=== PATIENT | male | born 1965 | race Caucasian/White ===

== ENCOUNTER 2018-02-23 09:55 | Emergency (ER) | payer MEDICAID ==
[~2018-02-23] VITALS: Ht 182.9 cm; Wt 103.2 kg
[~2018-02-23 09:55] MED LIST: ASPI-1264 PO; DILT120C52 PO; ESCI20TA29 PO; LOVA20TA2 PO; OXYC-145 PO
[2018-02-23 10:04] VITALS: BP 123/103
[2018-02-23] MEDS ORDERED: PANT-47 PO (10:35)
[2018-02-23] MEDS ORDERED: ONDA8TAB9 PO (10:35)
== END 2018-02-23 10:55 | disposition home or self-care (01) ==
LOC: ER 09:56
DX: R11.0 Nausea (principal); Q79.59 Other congenital malformations of abdominal wall; I48.91 Unspecified atrial fibrillation; I10 Essential (primary) hypertension; G89.29 Other chronic pain; F12.10 Cannabis abuse, uncomplicated; Z88.0 Allergy status to penicillin
CPT/HCPCS: 99283

== ENCOUNTER 2019-03-15 18:04 | Emergency (ER) | payer MEDICAID ==
[~2019-03-15] VITALS: Ht 182.9 cm; Wt 96.8 kg
[~2019-03-15 18:04] MED LIST changes: +ONDA8TAB9 PO; +PANT-47 PO
[2019-03-15 18:12] VITALS: BP 137/96
--- NOTE | 2019-03-15 20:14 | NUR ---
PT HAS HIS BACK PACK ON AND IS WALKING AROUND IN HIS ROOM.
== END 2019-03-15 20:33 | disposition left against medical advice (07) ==
LOC: ER 18:04
DX: M25.552 Pain in left hip (principal); G89.29 Other chronic pain; M54.5 Low back pain; I48.91 Unspecified atrial fibrillation; I10 Essential (primary) hypertension; F12.90 Cannabis use, unspecified, uncomplicated; Z88.0 Allergy status to penicillin; Z79.82 Long term (current) use of aspirin; Z79.899 Other long term (current) drug therapy; X50.1XXA Overexertion from prolonged static or awkward postures, initial encounter; Y93.89 Activity, other specified; Y92.89 Other specified places as the place of occurrence of the external cause; Y99.8 Other external cause status
CPT/HCPCS: 99281

== ENCOUNTER 2019-06-06 15:07 | Emergency (ER) | payer MEDICAID ==
[~2019-06-06] VITALS: Ht 182.9 cm; Wt 80.0 kg
[2019-06-06] MEDS ORDERED: normal saline 1000ML IV soln IV ONE (15:25)
[2019-06-06] MEDS ORDERED: ondansetron/PF 4mg/2ml inj IV ONE (15:25)
[2019-06-06 15:46] LABS: EOSINOPHILS # (AUTO) 0.2 X10'3 (0-0.9); HEMOGLOBIN 15.1 g/dl (14.0-17.9); LYMPHOCYTES % (AUTO) 45.5 % (21-51); MONOCYTES # (AUTO) 0.8 X10'3 (0-0.9); NEUTROPHILS # (AUTO) 3.3 X10'3 (1.8-7.7); PLATELET COUNT 190 X10'3 (140-440); WHITE BLOOD COUNT 7.8 X10'3 (4.5-11.0)
[2019-06-06 15:48] LABS: BASOPHILS % (AUTO) 0.2 % (0-1); EOSINOPHILS % (AUTO) 2.2 % (0-6); HEMATOCRIT 43.1 % (42.0-52.0); LYMPHOCYTES # (AUTO) 3.6 X10'3 (1.1-4.8); MEAN CORPUSCULAR HEMOGLOBIN 36.1 PG (27.0-31.0); MEAN CORPUSCULAR HGB CONC 35.2 g/dL (33.0-36.5); MEAN CORPUSCULAR VOLUME 102.7 FL (78-98); MEAN PLATELET VOLUME 7.6 FL (7.4-10.4); MONOCYTES % (AUTO) 9.9 % (2-12); NEUTROPHILS % (AUTO) 42.2 % (42-75); RED BLOOD COUNT 4.19 X10'6 (4.70-6.10); RED CELL DISTRIBUTION WIDTH 12.7 % (11.5-14.5)
[2019-06-06 16:02] LABS: ALANINE AMINOTRANSFERASE 75 U/L (12-78); ALBUMIN 3.8 G/DL (3.4-5.0); ALBUMIN/GLOBULIN RATIO 0.9 (1.1-1.5); ALKALINE PHOSPHATASE 107 IU/L (46-116); ANION GAP 15 (8-16); ASPARTATE AMINO TRANSFERASE 48 U/L (10-37); BILIRUBIN,TOTAL 0.3 MG/DL (0.1-1.0); BLOOD UREA NITROGEN 9 MG/DL (7-18); BUN/CREATININE RATIO 11.5 (5.4-32.0); CALCIUM 9.7 MG/DL (8.5-10.1); CHLORIDE 103 MMOL/L (99-107); CREATININE 0.78 MG/DL (0.60-1.10); GLUCOSE 80 MG/DL (70-104); POTASSIUM 3.5 MMOL/L (3.5-5.1); SODIUM 141 MMOL/L (135-145); TOTAL CARBON DIOXIDE 23.2 MMOL/L (24-32); TOTAL PROTEIN 8.1 G/DL (6.4-8.2); eGFR > 90 ML/MIN
[2019-06-06 16:04] LABS: CREATINE KINASE 244 U/L (39-308)
[2019-06-06] MEDS ORDERED: ONDA4TAB6 PO (16:08)
--- NOTE | 2019-06-06 16:27 | NUR ---
PT STATES HE FEELS MUCH BETTER.
--- NOTE | 2019-06-06 16:37 | NUR ---
PT GIVEN A SANDWICH AND MILK
[2019-06-06 17:12] VITALS: BP 144/83
== END 2019-06-06 17:10 | disposition home or self-care (01) ==
LOC: ER 15:08
DX: E86.0 Dehydration (principal); T67.5XXA Heat exhaustion, unspecified, initial encounter; R11.2 Nausea with vomiting, unspecified; I48.91 Unspecified atrial fibrillation; I10 Essential (primary) hypertension; G89.29 Other chronic pain; F12.90 Cannabis use, unspecified, uncomplicated; Z88.0 Allergy status to penicillin; Z79.82 Long term (current) use of aspirin; Z59.0 Homelessness; Z79.899 Other long term (current) drug therapy; Y92.89 Other specified places as the place of occurrence of the external cause
CPT/HCPCS: 36415; 71045; 80053; 82550; 82948; 84484; 85025; 93005; 96361; 96374; 99284; J2405; J7030

== ENCOUNTER 2020-07-13 19:23 | Emergency (ER) | payer MEDICAID ==
[~2020-07-13] VITALS: Ht 182.9 cm; Wt 105.0 kg
[~2020-07-13 19:23] MED LIST changes: +ONDA4TAB6 PO
[2020-07-13 19:39] VITALS: BP 137/90
[2020-07-13] MEDS ORDERED: ketorolac trometh inj. 60 MG/2 ML VIAL IM ONE (21:00)
[2020-07-13] MEDS ORDERED: CYCL-1 PO (21:03)
[2020-07-13] MEDS ORDERED: PRED20TA PO (21:03)
== END 2020-07-13 21:21 | disposition home or self-care (01) ==
LOC: ER 19:24
DX: M54.5 Low back pain (principal); M25.552 Pain in left hip; I48.91 Unspecified atrial fibrillation; I10 Essential (primary) hypertension; G89.29 Other chronic pain; F41.9 Anxiety disorder, unspecified; F12.90 Cannabis use, unspecified, uncomplicated; F32.9 Major depressive disorder, single episode, unspecified; Z59.0 Homelessness; Z88.0 Allergy status to penicillin; Z79.82 Long term (current) use of aspirin; Z79.899 Other long term (current) drug therapy
CPT/HCPCS: 96372; 99283; J1885

== ENCOUNTER 2020-09-06 13:05 | Emergency (ER) | payer MEDICAID ==
[~2020-09-06] VITALS: Ht 182.9 cm; Wt 103.9 kg
[~2020-09-06 13:05] MED LIST changes: +CYCL-1 PO
[2020-09-06] MEDS ORDERED: CEPH-572 PO (14:36)
[2020-09-06] MEDS ORDERED: HYDR-3965 PO (14:56)
--- NOTE | 2020-09-06 15:15 | NUR ---
Kumar cole in ED - 09/06/20 at 1541 by DIPTI post najera applied by francis rodas dmak the pt .
--- NOTE | 2020-09-06 15:20 | NUR ---
NOTFIED SHLOMO CASTREJON THAT PT IS WAITING FOR ORTHO ORDER FOR POST OP BOOT TO RGT FOOT PER COOPERATIVE EXTENSION AGENT HE IS BREAKING SOMEONE AND THEN HE WILL ,PT INSTRUCTED TO WAIT FOR BOOT BEFORE HE LEAVES.
--- NOTE | 2020-09-06 15:30 | NUR ---
Pt has post op boot before d/c .applied by steel weldermaurice wesley..
[2020-09-06 15:37] VITALS: BP 110/82
--- NOTE | 2020-09-06 15:51 | NUR ---
carson peguero has given prx for karenco to dharmesh thornton ,pt already lft the er 15 mins ago ,pt called on [phone] not able to get hold on pt 3 times ,voice msg is full not able to leave ms .
== END 2020-09-06 15:40 | disposition home or self-care (01) ==
LOC: ER 13:06
DX: M79.674 Pain in right toe(s) (principal); M79.89 Other specified soft tissue disorders; I48.91 Unspecified atrial fibrillation; I10 Essential (primary) hypertension; G89.29 Other chronic pain; F41.9 Anxiety disorder, unspecified; F32.9 Major depressive disorder, single episode, unspecified; F12.90 Cannabis use, unspecified, uncomplicated; Z72.89 Other problems related to lifestyle; Z59.0 Homelessness; Z88.0 Allergy status to penicillin; Z79.82 Long term (current) use of aspirin; Z79.2 Long term (current) use of antibiotics; Z79.899 Other long term (current) drug therapy
CPT/HCPCS: 73660; 99283

== ENCOUNTER 2023-10-03 12:19 | Emergency (ER) | payer MEDICAID ==
[~2023-10-03] VITALS: Ht 185.4 cm; Wt 102.3 kg
[2023-10-03 13:15] LABS: BASOPHILS % (AUTO) 0.5 % (0-1); EOSINOPHILS # (AUTO) 0.1 X10'3 (0-0.9); EOSINOPHILS % (AUTO) 1.3 % (0-6); LYMPHOCYTES # (AUTO) 2.1 X10'3 (1.1-4.8); LYMPHOCYTES % (AUTO) 26.4 % (21-51); MEAN CORPUSCULAR HEMOGLOBIN 34.8 PG (27.0-31.0); MEAN CORPUSCULAR HGB CONC 34.6 g/dL (33.0-36.5); MEAN CORPUSCULAR VOLUME 100.7 FL (78-98); MONOCYTES # (AUTO) 0.9 X10'3 (0-0.9); MONOCYTES % (AUTO) 10.9 % (2-12); NEUTROPHILS # (AUTO) 4.8 X10'3 (1.8-7.7); NEUTROPHILS % (AUTO) 60.9 % (42-75); PLATELET COUNT 217 X10'3 (140-440); RED BLOOD COUNT 4.87 X10'6 (4.70-6.10); RED CELL DISTRIBUTION WIDTH 13.4 % (11.5-14.5); WHITE BLOOD COUNT 7.9 X10'3 (4.5-11.0)
[2023-10-03 13:32] LABS: ALANINE AMINOTRANSFERASE 46 U/L (12-78); ALBUMIN 4.1 G/DL (3.4-5.0); ALKALINE PHOSPHATASE 96 IU/L (46-116); ANION GAP 12 (8-16); ASPARTATE AMINO TRANSFERASE 55 U/L (10-37); BILIRUBIN,TOTAL 0.7 MG/DL (0.1-1.0); BLOOD UREA NITROGEN 8 MG/DL (7-18); BUN/CREATININE RATIO 8.9 (10.0-20.0); CHLORIDE 95 MMOL/L (99-107); GLUCOSE 98 MG/DL (70-104); POTASSIUM 4.1 MMOL/L (3.5-5.1); SODIUM 133 MMOL/L (135-145); TOTAL CARBON DIOXIDE 26.3 MMOL/L (24-32); TOTAL PROTEIN 8.2 G/DL (6.4-8.2); eCRCL 100 ML/MIN; eGFR 86 ML/MIN
[2023-10-03 13:37] LABS: AMYLASE 111 U/L (25-115); LIPASE 277 U/L (16-77); PRO BRAIN NATRIURETIC PEPTIDE 388 PG/ML (0-125)
[2023-10-03 16:02] LABS: APTT 31 SECONDS (22-32); PROTHROMBIN TIME 10.9 SECONDS (9.0-12.0)
[2023-10-03 16:12] LABS: PRO BRAIN NATRIURETIC PEPTIDE 429 PG/ML (0-125)
[2023-10-03] MEDS ORDERED: iohexol 300mg/ml 100ml inj. ONE (17:45)
[2023-10-03] MEDS ORDERED: CIPR-259 PO (19:39)
[2023-10-03 19:51] VITALS: BP 140/99; PULSE 82; RESP 16; TEMP 98.1; O2SAT 95
== END 2023-10-03 19:52 | disposition home or self-care (01) ==
LOC: ER 12:20
DX: K85.90 Acute pancreatitis without necrosis or infection, unspecified (principal); N30.90 Cystitis, unspecified without hematuria; I10 Essential (primary) hypertension; G89.29 Other chronic pain; F41.9 Anxiety disorder, unspecified; F32.9 Major depressive disorder, single episode, unspecified; I48.91 Unspecified atrial fibrillation; F17.200 Nicotine dependence, unspecified, uncomplicated; F12.90 Cannabis use, unspecified, uncomplicated; Z59.00 Homelessness unspecified; Z72.89 Other problems related to lifestyle; Z88.0 Allergy status to penicillin; Z79.82 Long term (current) use of aspirin; Z79.899 Other long term (current) drug therapy
CPT/HCPCS: 36415; 71045; 74177; 80053; 82150; 83690; 83880; 84484; 85025; 85610; 85730; 93005; 99285; J3490; Q9967

== ENCOUNTER 2024-08-01 17:27 | Emergency (ER) | payer MEDICAID ==
[~2024-08-01] VITALS: Ht 182.9 cm; Wt 90.9 kg
[2024-08-01 18:31] LABS: BASOPHILS % (AUTO) 0.5 % (0-1); EOSINOPHILS # (AUTO) 0.2 X10'3 (0-0.9); EOSINOPHILS % (AUTO) 2.8 % (0-6); HEMATOCRIT 46.3 % (42.0-52.0); HEMOGLOBIN 15.8 g/dl (14.0-17.9); LYMPHOCYTES # (AUTO) 2.5 X10'3 (1.1-4.8); LYMPHOCYTES % (AUTO) 33.1 % (21-51); MEAN CORPUSCULAR HGB CONC 34.1 g/dL (33.0-36.5); MEAN PLATELET VOLUME 9.3 FL (7.4-10.4); MONOCYTES # (AUTO) 0.7 X10'3 (0-0.9); MONOCYTES % (AUTO) 8.7 % (2-12); NEUTROPHILS # (AUTO) 4.2 X10'3 (1.8-7.7); NEUTROPHILS % (AUTO) 54.9 % (42-75); PLATELET COUNT 197 X10'3 (140-440); RED BLOOD COUNT 4.63 X10'6 (4.70-6.10); RED CELL DISTRIBUTION WIDTH 13.5 % (11.5-14.5); WHITE BLOOD COUNT 7.7 X10'3 (4.5-11.0)
[2024-08-01 18:45] LABS: ALANINE AMINOTRANSFERASE 14 U/L (12-78); ALBUMIN 3.5 G/DL (3.4-5.0); ALBUMIN/GLOBULIN RATIO 0.9 (1.1-1.5); ALKALINE PHOSPHATASE 65 IU/L (46-116); AMYLASE 93 U/L (25-115); ANION GAP 8 (8-16); ASPARTATE AMINO TRANSFERASE 15 U/L (10-37); BILIRUBIN,TOTAL 0.9 MG/DL (0.1-1.0); BLOOD UREA NITROGEN 15 MG/DL (7-18); BUN/CREATININE RATIO 15.8 (10.0-20.0); CALCIUM 9.6 MG/DL (8.5-10.1); CHLORIDE 101 MMOL/L (99-107); CREATININE 0.95 MG/DL (0.60-1.10); GLUCOSE 90 MG/DL (70-104); LIPASE 156 U/L (16-77); POTASSIUM 3.7 MMOL/L (3.5-5.1); SODIUM 138 MMOL/L (135-145); TOTAL CARBON DIOXIDE 29.1 MMOL/L (24-32); TOTAL PROTEIN 7.3 G/DL (6.4-8.2); eCRCL 91 ML/MIN; eGFR 81 ML/MIN
[2024-08-01 19:08] LABS: FREE T4 (FREE THYROXINE) 1.11 NG/DL (0.73-1.40); THYROID STIMULATING HORMONE 1.76 ulU/ml (0.34-4.50)
[2024-08-01 19:16] LABS: APTT 27 SECONDS (22-32); INR 1.1 INR; PROTHROMBIN TIME 11.9 SECONDS (9.0-12.0)
[2024-08-01] MEDS ORDERED: iohexol 300mg/ml 100ml inj. ONE (22:06)
[2024-08-01] MEDS: dicyclomine 10 MG capsule PO ONE (22:44)
[2024-08-01] MEDS: LIDOcaine 2% Viscous 15ml cup MM PRN (22:54)
[2024-08-01] MEDS: mag hydrox/Alum hydrox/simeth 30ml oral suspension PO ONE (22:55)
[2024-08-01 23:14] LABS: BILIRUBIN,URINE NEGATIVE (Neg); CLARITY,URINE CLEAR (Clear); COLOR,URINE YELLOW (Yellow); GLUCOSE, URINE NEGATIVE (Neg); KETONES,URINE NEGATIVE (Neg); LEUKOCYTE ESTERASE ,URINE NEGATIVE (Neg); NITRITES, URINE NEGATIVE (Neg); OCCULT BLOOD,URINE NEGATIVE (Neg); PROTEIN,URINE NEGATIVE (Neg)
[2024-08-01 23:20] LABS: UA COLLECTION TYPE CLN CATCH MIDSTREAM
[2024-08-01 23:31] VITALS: BP 112/81; PULSE 87; RESP 15; TEMP 97.8; O2SAT 100
[2024-08-01] MEDS ORDERED: DICY20TA17 PO (23:37)
[2024-08-01] MEDS ORDERED: DOCU-148 PO (23:37)
[2024-08-01] MEDS ORDERED: OMEP40CA21 PO (23:37)
[2024-08-01] MEDS ORDERED: POLY119P2 PO (23:37)
== END 2024-08-01 23:53 | disposition home or self-care (01) ==
LOC: ER 17:27
DX: K86.2 Cyst of pancreas (principal); K59.00 Constipation, unspecified; F10.10 Alcohol abuse, uncomplicated; R10.13 Epigastric pain; I10 Essential (primary) hypertension; F41.9 Anxiety disorder, unspecified; F32.A Depression, unspecified; F12.90 Cannabis use, unspecified, uncomplicated; Z88.0 Allergy status to penicillin; Z79.82 Long term (current) use of aspirin; Z79.899 Other long term (current) drug therapy; Y90.9 Presence of alcohol in blood, level not specified
CPT/HCPCS: 36415; 71045; 74177; 80053; 81003; 82150; 83690; 84439; 84443; 85025; 85610; 85730; 99285; Q9967

== ENCOUNTER 2024-08-22 14:35 | Inpatient (IN) | payer MEDICAID ==
[~2024-08-22] VITALS: Ht 182.9 cm; Wt 90.0 kg
[~2024-08-22 14:35] MED LIST changes: +DICY20TA17 PO; +DOCU-148 PO; +OMEP40CA21 PO; +POLY119P2 PO
[2024-08-22 15:26] LABS: BASOPHILS # (AUTO) 0.1 X10'3 (0-0.2); BASOPHILS % (AUTO) 0.7 % (0-1); EOSINOPHILS # (AUTO) 0.1 X10'3 (0-0.9); EOSINOPHILS % (AUTO) 1.3 % (0-6); HEMATOCRIT 44.1 % (42.0-52.0); HEMOGLOBIN 15.4 g/dl (14.0-17.9); LYMPHOCYTES # (AUTO) 2.4 X10'3 (1.1-4.8); LYMPHOCYTES % (AUTO) 24.1 % (21-51); MEAN CORPUSCULAR HEMOGLOBIN 34.4 PG (27.0-31.0); MEAN CORPUSCULAR HGB CONC 34.9 g/dL (33.0-36.5); MEAN CORPUSCULAR VOLUME 98.7 FL (78-98); MEAN PLATELET VOLUME 9.4 FL (7.4-10.4); MONOCYTES # (AUTO) 0.9 X10'3 (0-0.9); MONOCYTES % (AUTO) 9.1 % (2-12); NEUTROPHILS # (AUTO) 6.3 X10'3 (1.8-7.7); NEUTROPHILS % (AUTO) 64.8 % (42-75); PLATELET COUNT 216 X10'3 (140-440); RED BLOOD COUNT 4.47 X10'6 (4.70-6.10); RED CELL DISTRIBUTION WIDTH 12.7 % (11.5-14.5); WHITE BLOOD COUNT 9.8 X10'3 (4.5-11.0)
[2024-08-22 15:38] LABS: ALANINE AMINOTRANSFERASE 15 U/L (12-78); ALBUMIN 3.6 G/DL (3.4-5.0); ALBUMIN/GLOBULIN RATIO 0.9 (1.1-1.5); ALKALINE PHOSPHATASE 78 IU/L (46-116); ANION GAP 9 (8-16); ASPARTATE AMINO TRANSFERASE 12 U/L (10-37); BILIRUBIN,TOTAL 0.6 MG/DL (0.1-1.0); BLOOD UREA NITROGEN 15 MG/DL (7-18); BUN/CREATININE RATIO 17.2 (10.0-20.0); CALCIUM 9.6 MG/DL (8.5-10.1); CHLORIDE 102 MMOL/L (99-107); CREATININE 0.87 MG/DL (0.60-1.10); GLUCOSE 94 MG/DL (70-104); LIPASE 359 U/L (16-77); POTASSIUM 3.3 MMOL/L (3.5-5.1); SODIUM 138 MMOL/L (135-145); TOTAL CARBON DIOXIDE 26.8 MMOL/L (24-32); TOTAL PROTEIN 7.5 G/DL (6.4-8.2); eCRCL 99 ML/MIN; eGFR 90 ML/MIN
[2024-08-22] MEDS: normal saline 1000ML IV soln IVB ONE (16:30)
[2024-08-22] MEDS: ondansetron/PF 4mg/2ml inj IV ONE (16:30)
[2024-08-22] MEDS: morphine 4 MG/ML inj SYRINge IV ONE (16:30)
[2024-08-22] MEDS: ketorolac trometh 15mg/ml vial 15 MG/ML ML IV ONE (16:39)
[2024-08-22] MEDS ORDERED: magnesium Cl slow-release 64mg tablet PO PRN (17:15)
[2024-08-22] MEDS ORDERED: potassium Cl 40MEQ/1/2NS 520ml 520 ML IV PRN (17:15)
[2024-08-22] MEDS ORDERED: morphine 2 MG/ML inj. syringe IV PRN ×2 (17:15)
[2024-08-22] MEDS ORDERED: mag hydrox/Alum hydrox/simeth 30ml oral suspension PO PRN (17:15)
[2024-08-22] MEDS ORDERED: ondansetron/PF 4mg/2ml inj IV PRN (17:15)
[2024-08-22] MEDS ORDERED: acetaminophen 325mg tablet PO PRN (17:15)
[2024-08-22] MEDS ORDERED: potassium Cl 20 mEq SR tablet PO PRN (17:15)
[2024-08-22 17:35] LABS: CHOL/HDL RATIO 3.2 (0.00-4.99); CHOLESTEROL 112 MG/DL (0-200); HDL CHOLESTEROL 35 MG/DL (35-60); LDL CHOLESTEROL 63 MG/DL (50-100); TRIGLYCERIDES 84 MG/DL (20-135)
[2024-08-22] MEDS: normal saline 1000ml 1,000 ML IV SCH (17:47)
[2024-08-22 17:50] LABS: APTT 30 SECONDS (22-32); INR 1.1 INR; PROTHROMBIN TIME 11.4 SECONDS (9.0-12.0)
[2024-08-22 18:31] LABS: ETHANOL < 10 MG/DL (<10)
[2024-08-22] MEDS: heparin, porcine 5000 units/ml vial SQ SCH (19:55)
[2024-08-22] MEDS: potassium Cl 20 mEq SR tablet PO PRN (19:55)
[2024-08-22] MEDS: docusate sod 100mg capsule PO SCH (19:55)
[2024-08-22] MEDS: thiamine 100mg tablet PO SCH (19:56)
[2024-08-22] MEDS: folic acid 1mg tablet PO SCH (19:56)
[2024-08-22] MEDS: multivitamins, therapeutics tablet PO SCH (19:57)
[2024-08-22 20:10] VITALS: BP 128/84; PULSE 75; RESP 17; TEMP 97.1; O2SAT 97
[2024-08-22 20:15] VITALS: RESP 17; O2SAT 97
[2024-08-22 22:00] VITALS: BP 149/92; PULSE 65; RESP 17; TEMP 97.8; O2SAT 99
[2024-08-22] MEDS ORDERED: APIX5TAB3 PO (23:35)
[2024-08-22] MEDS ORDERED: METO-411 PO (23:37)
[2024-08-22] MEDS ORDERED: ATOR10TA87 PO (23:43)
[2024-08-22] MEDS: HYDROcodone/acetaminophen 10/325mg tab PO PRN (23:44)
[2024-08-23 05:00] LABS: BASOPHILS % (AUTO) 0.6 % (0-1); EOSINOPHILS # (AUTO) 0.1 X10'3 (0-0.9); HEMATOCRIT 39.6 % (42.0-52.0); HEMOGLOBIN 13.1 g/dl (14.0-17.9); LYMPHOCYTES % (AUTO) 25.9 % (21-51); MEAN CORPUSCULAR HEMOGLOBIN 32.7 PG (27.0-31.0); MEAN CORPUSCULAR VOLUME 99.1 FL (78-98); MEAN PLATELET VOLUME 8.9 FL (7.4-10.4); MONOCYTES # (AUTO) 0.7 X10'3 (0-0.9); MONOCYTES % (AUTO) 9.9 % (2-12); NEUTROPHILS # (AUTO) 4.7 X10'3 (1.8-7.7); NEUTROPHILS % (AUTO) 61.6 % (42-75); PLATELET COUNT 179 X10'3 (140-440); RED CELL DISTRIBUTION WIDTH 12.8 % (11.5-14.5); WHITE BLOOD COUNT 7.6 X10'3 (4.5-11.0)
[2024-08-23 05:12] LABS: ALANINE AMINOTRANSFERASE 9 U/L (12-78); ALBUMIN 2.8 G/DL (3.4-5.0); ALBUMIN/GLOBULIN RATIO 0.9 (1.1-1.5); ALKALINE PHOSPHATASE 62 IU/L (46-116); ANION GAP 8 (8-16); ASPARTATE AMINO TRANSFERASE 7 U/L (10-37); BILIRUBIN,TOTAL 0.7 MG/DL (0.1-1.0); BLOOD UREA NITROGEN 16 MG/DL (7-18); BUN/CREATININE RATIO 19.8 (10.0-20.0); CALCIUM 8.6 MG/DL (8.5-10.1); CHLORIDE 107 MMOL/L (99-107); CREATININE 0.81 MG/DL (0.60-1.10); GLUCOSE 80 MG/DL (70-104); MAGNESIUM 1.8 MG/DL (1.5-2.4); SODIUM 140 MMOL/L (135-145); TOTAL CARBON DIOXIDE 25.3 MMOL/L (24-32); TOTAL PROTEIN 5.9 G/DL (6.4-8.2); eCRCL 106 ML/MIN; eGFR > 90 ML/MIN
[2024-08-23 06:00] VITALS: BP 118/85; PULSE 63; RESP 20; TEMP 97.8; O2SAT 98
[2024-08-23 09:10] LABS: LIPASE 188 U/L (16-77)
[2024-08-23] MEDS ORDERED: haloperidol lactate 5mg/ml inj IM PRN (10:20)
[2024-08-23] MEDS ORDERED: haloperidol 5mg tablet PO PRN (10:20)
[2024-08-23] MEDS ORDERED: LORazepam 1 MG tablet PO PRN (10:20)
[2024-08-23] MEDS ORDERED: LORazepam 2 mg/ml vial IV PRN (10:20)
[2024-08-23] MEDS: nicotine 14mg patch - 24hr TD SCH (10:20)
[2024-08-23 13:19] VITALS: RESP 16; O2SAT 96
[2024-08-23 13:47] VITALS: BP 118/81; PULSE 74; RESP 16; TEMP 97.6; O2SAT 96
[2024-08-23 18:00] VITALS: BP_SYST 135; BP_SYST 137; BP_DIAS 80; BP_DIAS 88; PULSE 69; RESP 17; RESP 18; TEMP 96.6; TEMP 98.3; O2SAT 99
[2024-08-23] MEDS: atorvastatin 10mg tablet PO SCH (18:09)
[2024-08-23] MEDS: pantoprazole 40mg Tablet.DR PO SCH (18:09)
[2024-08-23 20:00] VITALS: RESP 14; O2SAT 96
[2024-08-23] MEDS: apixaban 5mg tablet PO SCH (20:01)
[2024-08-23 22:00] VITALS: BP 135/88; PULSE 69; RESP 18; TEMP 96.6; O2SAT 99
[2024-08-24] VITALS (8 sets, daily range): BP systolic 118–154; BP diastolic 81–96; PULSE 73–90; RESP 16–20; TEMP 97.8–98.8; O2SAT 98–100
[2024-08-24 04:40] LABS: BASOPHILS % (AUTO) 0.5 % (0-1); EOSINOPHILS # (AUTO) 0.2 X10'3 (0-0.9); EOSINOPHILS % (AUTO) 2.9 % (0-6); HEMATOCRIT 39.1 % (42.0-52.0); HEMOGLOBIN 13.1 g/dl (14.0-17.9); LYMPHOCYTES # (AUTO) 2.1 X10'3 (1.1-4.8); LYMPHOCYTES % (AUTO) 33.5 % (21-51); MEAN CORPUSCULAR HEMOGLOBIN 33.2 PG (27.0-31.0); MEAN CORPUSCULAR HGB CONC 33.6 g/dL (33.0-36.5); MEAN CORPUSCULAR VOLUME 99.1 FL (78-98); MEAN PLATELET VOLUME 9.1 FL (7.4-10.4); MONOCYTES # (AUTO) 0.7 X10'3 (0-0.9); MONOCYTES % (AUTO) 11.1 % (2-12); NEUTROPHILS # (AUTO) 3.3 X10'3 (1.8-7.7); PLATELET COUNT 169 X10'3 (140-440); RED BLOOD COUNT 3.94 X10'6 (4.70-6.10); WHITE BLOOD COUNT 6.3 X10'3 (4.5-11.0)
[2024-08-24 04:52] LABS: ALANINE AMINOTRANSFERASE 8 U/L (12-78); ALBUMIN 2.6 G/DL (3.4-5.0); ALBUMIN/GLOBULIN RATIO 0.8 (1.1-1.5); ALKALINE PHOSPHATASE 61 IU/L (46-116); ANION GAP 7 (8-16); ASPARTATE AMINO TRANSFERASE 10 U/L (10-37); BILIRUBIN,TOTAL 0.6 MG/DL (0.1-1.0); BLOOD UREA NITROGEN 9 MG/DL (7-18); CALCIUM 8.7 MG/DL (8.5-10.1); CHLORIDE 107 MMOL/L (99-107); CREATININE 0.69 MG/DL (0.60-1.10); GLUCOSE 78 MG/DL (70-104); LIPASE 125 U/L (16-77); MAGNESIUM 1.6 MG/DL (1.5-2.4); POTASSIUM 3.3 MMOL/L (3.5-5.1); SODIUM 141 MMOL/L (135-145); TOTAL CARBON DIOXIDE 27.5 MMOL/L (24-32); TOTAL PROTEIN 5.9 G/DL (6.4-8.2); eCRCL 125 ML/MIN; eGFR > 90 ML/MIN
[2024-08-24] MEDS ORDERED: POTASSIUM BICARB 20meq eff tab 20 MEQ TABLET.EFF PO PRN (07:35)
[2024-08-24] MEDS: ESCITALOPRAM 10 mg tablet 10 MG TABLET PO SCH (07:46)
[2024-08-24] MEDS: metoprolol succinate 25mg (24-HOUR) SR. Tablet PO SCH (08:03)
[2024-08-24] MEDS: POTASSIUM BICARB 20meq eff tab 20 MEQ TABLET.EFF PO PRN (08:08)
[2024-08-24] MEDS: HYDROcodone/acetaminophen 5mg/325mg tablet PO PRN (13:39)
[2024-08-24] MEDS: dicyclomine 10 MG capsule PO PRN (13:39)
[2024-08-24] MEDS: magnesium hydroxide 30ml (MOM) UD suspension PO PRN (19:42)
[2024-08-24 19:54] LABS: BILIRUBIN,URINE NEGATIVE (Neg); CLARITY,URINE CLEAR (Clear); COLOR,URINE YELLOW (Yellow); GLUCOSE, URINE NEGATIVE (Neg); KETONES,URINE NEGATIVE (Neg); LEUKOCYTE ESTERASE ,URINE NEGATIVE (Neg); NITRITES, URINE NEGATIVE (Neg); OCCULT BLOOD,URINE NEGATIVE (Neg); PROTEIN,URINE NEGATIVE (Neg)
[2024-08-24 20:09] LABS: UA COLLECTION TYPE CLN CATCH MIDSTREAM
[2024-08-24 20:14] LABS: URINE AMPHETAMINE SCREEN NEGATIVE (Neg); URINE BARBITUATE SCREEN NEGATIVE (Neg); URINE BENZODIAZEPINES SCREEN NEGATIVE (Neg); URINE CANNABINOID SCREEN POSITIVE (Neg); URINE COCAINE SCREEN NEGATIVE (Neg); URINE METHADONE SCREEN NEGATIVE (Neg); URINE OPIATE SCREEN POSITIVE (Neg); URINE PHENCYCLIDINE SCREEN NEGATIVE (Neg)
[2024-08-25 05:43] LABS: ALANINE AMINOTRANSFERASE 14 U/L (12-78); ALBUMIN 2.4 G/DL (3.4-5.0); ALBUMIN/GLOBULIN RATIO 0.8 (1.1-1.5); ALKALINE PHOSPHATASE 51 IU/L (46-116); ANION GAP 4 (8-16); ASPARTATE AMINO TRANSFERASE 9 U/L (10-37); BILIRUBIN,TOTAL 0.5 MG/DL (0.1-1.0); BLOOD UREA NITROGEN 6 MG/DL (7-18); CALCIUM 8.5 MG/DL (8.5-10.1); CHLORIDE 109 MMOL/L (99-107); CREATININE 0.67 MG/DL (0.60-1.10); GLUCOSE 79 MG/DL (70-104); LIPASE 123 U/L (16-77); MAGNESIUM 1.8 MG/DL (1.5-2.4); POTASSIUM 3.5 MMOL/L (3.5-5.1); SODIUM 141 MMOL/L (135-145); TOTAL CARBON DIOXIDE 27.7 MMOL/L (24-32); TOTAL PROTEIN 5.4 G/DL (6.4-8.2); eCRCL 129 ML/MIN; eGFR > 90 ML/MIN
[2024-08-25 05:52] LABS: BASOPHILS % (AUTO) 0.5 % (0-1); EOSINOPHILS # (AUTO) 0.2 X10'3 (0-0.9); EOSINOPHILS % (AUTO) 3.1 % (0-6); HEMATOCRIT 34.4 % (42.0-52.0); HEMOGLOBIN 11.8 g/dl (14.0-17.9); LYMPHOCYTES # (AUTO) 2.2 X10'3 (1.1-4.8); LYMPHOCYTES % (AUTO) 39.9 % (21-51); MEAN CORPUSCULAR HEMOGLOBIN 33.9 PG (27.0-31.0); MEAN CORPUSCULAR HGB CONC 34.2 g/dL (33.0-36.5); MEAN PLATELET VOLUME 9.3 FL (7.4-10.4); MONOCYTES # (AUTO) 0.6 X10'3 (0-0.9); MONOCYTES % (AUTO) 11.2 % (2-12); NEUTROPHILS # (AUTO) 2.5 X10'3 (1.8-7.7); NEUTROPHILS % (AUTO) 45.3 % (42-75); PLATELET COUNT 151 X10'3 (140-440); RED BLOOD COUNT 3.48 X10'6 (4.70-6.10); WHITE BLOOD COUNT 5.6 X10'3 (4.5-11.0)
[2024-08-25 06:00] VITALS: BP 141/90; PULSE 76; RESP 16; TEMP 98; O2SAT 97
[2024-08-25 08:24] VITALS: RESP 17
[2024-08-25] MEDS ORDERED: ACET-1017 PO (10:04)
== END 2024-08-25 12:30 | disposition home or self-care (01) | DRG 282 ==
LOC: ER 14:36 → ED HOLD 17:19 → SUR 3N 20:05
PROVIDERS: ADMIT Family Medicine; ATTEND Family Medicine
DX: K85.90 Acute pancreatitis without necrosis or infection, unspecified (principal); E87.6 Hypokalemia; F10.10 Alcohol abuse, uncomplicated; I10 Essential (primary) hypertension; I48.91 Unspecified atrial fibrillation; M54.9 Dorsalgia, unspecified; F41.9 Anxiety disorder, unspecified; G89.4 Chronic pain syndrome; Y90.9 Presence of alcohol in blood, level not specified; K86.2 Cyst of pancreas; F32.A Depression, unspecified; Z87.891 Personal history of nicotine dependence; Z59.00 Homelessness unspecified; Z88.6 Allergy status to analgesic agent; Z88.0 Allergy status to penicillin
CPT/HCPCS: 36415; 76700; 80053; 80061; 80305; 80320; 81003; 82948; 83690; 83735; 84132; 85025; 85610; 85730; 87081; 99285; G0378; J1644; J1885; J2270; J2405; J7030

== ENCOUNTER 2024-09-28 12:52 | Inpatient (IN) | payer MEDICAID ==
[~2024-09-28] VITALS: Ht 182.9 cm; Wt 90.9 kg
[~2024-09-28 12:52] MED LIST changes: +APIX5TAB3 PO; +ATOR10TA87 PO; -CYCL-1 PO; -DICY20TA17 PO; -DOCU-148 PO; +METO-411 PO; -OMEP40CA21 PO; -ONDA4TAB6 PO; -ONDA8TAB9 PO; -OXYC-145 PO; -POLY119P2 PO
[2024-09-28] MEDS: normal saline 1000ML IV soln IVB ONE ×2 (14:00→16:47)
[2024-09-28] MEDS: ondansetron/PF 4mg/2ml inj IV ONE (14:00)
[2024-09-28] MEDS: morphine 4 MG/ML inj SYRINge IV ONE ×2 (14:00→16:47)
[2024-09-28] MEDS: pantoprazole 40 MG vial IV ONE (14:00)
[2024-09-28 14:10] LABS: BASOPHILS # (AUTO) 0.1 X10'3 (0-0.2); BASOPHILS % (AUTO) 0.5 % (0-1); EOSINOPHILS # (AUTO) 0.2 X10'3 (0-0.9); EOSINOPHILS % (AUTO) 1.8 % (0-6); HEMATOCRIT 45.9 % (42.0-52.0); HEMOGLOBIN 15.4 g/dl (14.0-17.9); LYMPHOCYTES # (AUTO) 2.5 X10'3 (1.1-4.8); LYMPHOCYTES % (AUTO) 21.7 % (21-51); MEAN CORPUSCULAR HEMOGLOBIN 32.9 PG (27.0-31.0); MEAN CORPUSCULAR HGB CONC 33.6 g/dL (33.0-36.5); MEAN CORPUSCULAR VOLUME 97.9 FL (78-98); MONOCYTES # (AUTO) 0.9 X10'3 (0-0.9); MONOCYTES % (AUTO) 8.1 % (2-12); NEUTROPHILS # (AUTO) 7.7 X10'3 (1.8-7.7); NEUTROPHILS % (AUTO) 67.9 % (42-75); PLATELET COUNT 262 X10'3 (140-440); RED BLOOD COUNT 4.69 X10'6 (4.70-6.10); RED CELL DISTRIBUTION WIDTH 13.7 % (11.5-14.5); WHITE BLOOD COUNT 11.3 X10'3 (4.5-11.0)
[2024-09-28 14:18] LABS: APTT 30 SECONDS (22-32); INR 1.1 INR; PROTHROMBIN TIME 11.4 SECONDS (9.0-12.0)
[2024-09-28 14:22] LABS: ALANINE AMINOTRANSFERASE 14 U/L (12-78); ALBUMIN 3.5 G/DL (3.4-5.0); ALBUMIN/GLOBULIN RATIO 0.9 (1.1-1.5); ALKALINE PHOSPHATASE 86 IU/L (46-116); ANION GAP 10 (8-16); BLOOD UREA NITROGEN 17 MG/DL (7-18); BUN/CREATININE RATIO 20.5 (10.0-20.0); CALCIUM 9.5 MG/DL (8.5-10.1); CHLORIDE 98 MMOL/L (99-107); CREATININE 0.83 MG/DL (0.60-1.10); GLUCOSE 89 MG/DL (70-104); LIPASE 70 U/L (16-77); MAGNESIUM 1.9 MG/DL (1.5-2.4); SODIUM 133 MMOL/L (135-145); TOTAL CARBON DIOXIDE 24.8 MMOL/L (24-32); TOTAL PROTEIN 7.4 G/DL (6.4-8.2); eCRCL 104 ML/MIN; eGFR > 90 ML/MIN
[2024-09-28 14:24] LABS: ASPARTATE AMINO TRANSFERASE 23 U/L (10-37); POTASSIUM 4.3 MMOL/L (3.5-5.1)
[2024-09-28 14:26] LABS: ETHANOL < 10 MG/DL (<10)
[2024-09-28] MEDS ORDERED: HYDROcodone/acetaminophen 5mg/325mg tablet PO PRN (16:10)
[2024-09-28] MEDS ORDERED: diphenhydrAMINE 50 mg/ml inj IV PRN (16:10)
[2024-09-28] MEDS ORDERED: mag hydrox/Alum hydrox/simeth 30ml oral suspension PO PRN (16:10)
[2024-09-28] MEDS ORDERED: ondansetron 4mg rapidly disintigrating tab PO PRN (16:10)
[2024-09-28] MEDS ORDERED: magnesium hydroxide 30ml (MOM) UD suspension PO PRN (16:10)
[2024-09-28] MEDS ORDERED: metoclopramide 5 mg/ml inj IV PRN (16:10)
[2024-09-28] MEDS ORDERED: acetaminophen 325mg tablet PO PRN ×2 (16:10)
[2024-09-28] MEDS ORDERED: bisacodyl 10mg suppository rectal RC PRN (16:10)
[2024-09-28] MEDS ORDERED: diphenhydrAMINE 25mg capsule PO PRN (16:10)
[2024-09-28] MEDS ORDERED: acetaminophen 1,000mg/100ml IV 100 ML IV PRN (16:30)
[2024-09-28 16:32] LABS: BILIRUBIN,URINE MODERATE (Neg); CLARITY,URINE CLEAR (Clear); GLUCOSE, URINE NEGATIVE (Neg); KETONES,URINE 40 mg/dl (Neg); LEUKOCYTE ESTERASE ,URINE NEGATIVE (Neg); OCCULT BLOOD,URINE NEGATIVE (Neg); PROTEIN,URINE 30 mg/dl (Neg)
[2024-09-28 16:34] LABS: COLOR,URINE DARK YELLOW (Yellow); NITRITES, URINE NEGATIVE (Neg); UA COLLECTION TYPE NON-SPECIFIED
[2024-09-28 16:41] LABS: AMORPHOUS PHOSPHATES 1+; BACTERIA,URINE FEW /HPF (Neg); FINE GRANULAR CAST 0-3 /LPF (NEGATIVE); MUCUS STRANDS FEW /LPF (Neg); RBC,URINE 0-2 /HPF (0-2); SQUAMOUS EPITHELIAL CELL,UR FEW /LPF (FEW)
[2024-09-28 16:46] LABS: URINE AMPHETAMINE SCREEN NEGATIVE (Neg); URINE BARBITUATE SCREEN NEGATIVE (Neg); URINE BENZODIAZEPINES SCREEN NEGATIVE (Neg); URINE CANNABINOID SCREEN POSITIVE (Neg); URINE COCAINE SCREEN NEGATIVE (Neg); URINE METHADONE SCREEN NEGATIVE (Neg); URINE OPIATE SCREEN POSITIVE (Neg); URINE PHENCYCLIDINE SCREEN NEGATIVE (Neg)
[2024-09-28 16:46] LABS: HEMOGLOBIN A1C 5.3 % (4.5-6.2)
[2024-09-28] MEDS: normal saline 1000ml 1,000 ML IV SCH (16:48)
[2024-09-28 16:50] LABS: PRO BRAIN NATRIURETIC PEPTIDE 846 PG/ML (0-125)
[2024-09-28 16:54] LABS: PHOSPHORUS 3.7 MG/DL (2.3-4.5)
[2024-09-28] MEDS: docusate sod 100mg capsule PO SCH (20:00)
[2024-09-28] MEDS: pantoprazole 40MG/NS 100ML BAG 100 ML IV SCH (20:24)
[2024-09-28] MEDS: heparin, porcine 5000 units/ml vial SQ SCH (20:24)
[2024-09-28] MEDS ORDERED: PANT40TA54 PO (20:29)
[2024-09-28] MEDS ORDERED: temazepam 15mg capsule PO PRN (21:00)
[2024-09-29] MEDS: morphine 2 MG/ML inj. syringe IV PRN ×2 (00:58→08:37)
[2024-09-29] MEDS: ondansetron/PF 4mg/2ml inj IV PRN (00:58)
[2024-09-29 08:29] LABS: BASOPHILS % (AUTO) 0.4 % (0-1); EOSINOPHILS # (AUTO) 0.2 X10'3 (0-0.9); EOSINOPHILS % (AUTO) 1.6 % (0-6); HEMATOCRIT 41.1 % (42.0-52.0); HEMOGLOBIN 13.8 g/dl (14.0-17.9); LYMPHOCYTES # (AUTO) 1.8 X10'3 (1.1-4.8); LYMPHOCYTES % (AUTO) 17.5 % (21-51); MEAN CORPUSCULAR HEMOGLOBIN 32.6 PG (27.0-31.0); MEAN CORPUSCULAR HGB CONC 33.6 g/dL (33.0-36.5); MEAN PLATELET VOLUME 8.7 FL (7.4-10.4); MONOCYTES # (AUTO) 0.8 X10'3 (0-0.9); MONOCYTES % (AUTO) 8.2 % (2-12); NEUTROPHILS # (AUTO) 7.4 X10'3 (1.8-7.7); NEUTROPHILS % (AUTO) 72.3 % (42-75); PLATELET COUNT 231 X10'3 (140-440); RED BLOOD COUNT 4.24 X10'6 (4.70-6.10); RED CELL DISTRIBUTION WIDTH 13.9 % (11.5-14.5); WHITE BLOOD COUNT 10.2 X10'3 (4.5-11.0)
[2024-09-29 09:10] LABS: ALANINE AMINOTRANSFERASE 14 U/L (12-78); ALBUMIN 3.1 G/DL (3.4-5.0); ALBUMIN/GLOBULIN RATIO 0.9 (1.1-1.5); ALKALINE PHOSPHATASE 72 IU/L (46-116); ANION GAP 10 (8-16); ASPARTATE AMINO TRANSFERASE 13 U/L (10-37); BILIRUBIN,TOTAL 0.8 MG/DL (0.1-1.0); BLOOD UREA NITROGEN 17 MG/DL (7-18); BUN/CREATININE RATIO 24.6 (10.0-20.0); CALCIUM 8.8 MG/DL (8.5-10.1); CHLORIDE 101 MMOL/L (99-107); CHOL/HDL RATIO 3.6 (0.00-4.99); CHOLESTEROL 111 MG/DL (0-200); CREATININE 0.69 MG/DL (0.60-1.10); GLUCOSE 77 MG/DL (70-104); HDL CHOLESTEROL 31 MG/DL (35-60); LDL CHOLESTEROL 72 MG/DL (50-100); POTASSIUM 3.5 MMOL/L (3.5-5.1); SODIUM 134 MMOL/L (135-145); TOTAL CARBON DIOXIDE 23.2 MMOL/L (24-32); TOTAL PROTEIN 6.6 G/DL (6.4-8.2); TRIGLYCERIDES 81 MG/DL (20-135); eCRCL 125 ML/MIN; eGFR > 90 ML/MIN
[2024-09-29 11:01] VITALS: BP 128/96; PULSE 93; RESP 16; TEMP 98.2; O2SAT 99
[2024-09-29] MEDS: HYDROcodone/acetaminophen 10/325mg tab PO PRN (11:09)
[2024-09-29 15:00] VITALS: RESP 14; O2SAT 98
[2024-09-29] MEDS: levoFLOXACIN-Levaquin 500mg/D5 100 ML IV SCH (17:35)
[2024-09-29 17:38] LABS: H PYLORI ANTIBODY NEGATIVE (Neg)
[2024-09-29 18:00] VITALS: BP 123/86; PULSE 80; RESP 13; TEMP 97.5; O2SAT 97
[2024-09-29 20:00] VITALS: RESP 13; O2SAT 97
[2024-09-29 22:00] VITALS: BP 116/92; PULSE 79; RESP 13; TEMP 97.5; O2SAT 97
[2024-09-30 06:00] VITALS: BP 103/63; PULSE 79; RESP 18; TEMP 98.7; O2SAT 100
[2024-09-30 07:58] LABS: BASOPHILS % (AUTO) 0.3 % (0-1); EOSINOPHILS # (AUTO) 0.2 X10'3 (0-0.9); EOSINOPHILS % (AUTO) 2.7 % (0-6); HEMATOCRIT 37.1 % (42.0-52.0); HEMOGLOBIN 12.6 g/dl (14.0-17.9); LYMPHOCYTES # (AUTO) 1.6 X10'3 (1.1-4.8); LYMPHOCYTES % (AUTO) 22.8 % (21-51); MEAN CORPUSCULAR HEMOGLOBIN 33.1 PG (27.0-31.0); MEAN CORPUSCULAR VOLUME 97.4 FL (78-98); MEAN PLATELET VOLUME 8.7 FL (7.4-10.4); MONOCYTES # (AUTO) 0.7 X10'3 (0-0.9); MONOCYTES % (AUTO) 9.6 % (2-12); NEUTROPHILS # (AUTO) 4.5 X10'3 (1.8-7.7); NEUTROPHILS % (AUTO) 64.6 % (42-75); PLATELET COUNT 207 X10'3 (140-440); RED BLOOD COUNT 3.81 X10'6 (4.70-6.10); RED CELL DISTRIBUTION WIDTH 13.8 % (11.5-14.5)
[2024-09-30 08:06] LABS: ALANINE AMINOTRANSFERASE 9 U/L (12-78); ALBUMIN 2.6 G/DL (3.4-5.0); ALBUMIN/GLOBULIN RATIO 0.8 (1.1-1.5); ALKALINE PHOSPHATASE 61 IU/L (46-116); ANION GAP 6 (8-16); ASPARTATE AMINO TRANSFERASE 14 U/L (10-37); BILIRUBIN,TOTAL 0.8 MG/DL (0.1-1.0); BLOOD UREA NITROGEN 13 MG/DL (7-18); BUN/CREATININE RATIO 17.6 (10.0-20.0); CALCIUM 8.4 MG/DL (8.5-10.1); CHLORIDE 103 MMOL/L (99-107); CREATININE 0.74 MG/DL (0.60-1.10); GLUCOSE 63 MG/DL (70-104); POTASSIUM 3.4 MMOL/L (3.5-5.1); SODIUM 136 MMOL/L (135-145); TOTAL CARBON DIOXIDE 26.6 MMOL/L (24-32); TOTAL PROTEIN 5.8 G/DL (6.4-8.2); eCRCL 117 ML/MIN; eGFR > 90 ML/MIN
[2024-09-30 08:47] VITALS: RESP 16; O2SAT 100
[2024-09-30] MEDS: metoprolol succinate 25mg (24-HOUR) SR. Tablet PO SCH (11:18)
[2024-09-30] MEDS: ESCITALOPRAM 10 mg tablet 10 MG TABLET PO SCH (11:18)
[2024-09-30] MEDS: diltiazem CD 120mg capsule (once-daily) PO SCH (11:19)
[2024-09-30] MEDS ORDERED: ESCI5TAB PO (12:07)
[2024-09-30 18:00] VITALS: BP 103/65; PULSE 85; RESP 13; TEMP 97.8; O2SAT 98
[2024-09-30] MEDS ORDERED: magnesium Cl slow-release 64mg tablet PO PRN (19:45)
[2024-09-30] MEDS ORDERED: potassium Cl 20 mEq SR tablet PO PRN ×2 (19:45→23:05)
[2024-09-30] MEDS: apixaban 5mg tablet PO SCH (19:56)
[2024-09-30] MEDS: pantoprazole 40mg Tablet.DR PO SCH (20:00)
[2024-09-30] MEDS: potassium Cl 20 mEq SR tablet PO PRN (20:48)
[2024-09-30 22:00] VITALS: BP 135/89; PULSE 84; RESP 16; TEMP 97.6; O2SAT 99
[2024-10-01] MEDS: potassium Cl 20 mEq SR tablet PO PRN (01:01)
[2024-10-01 06:00] VITALS: BP 114/78; PULSE 68; RESP 18; TEMP 97.7; O2SAT 98
[2024-10-01 06:41] LABS: BASOPHILS % (AUTO) 0.4 % (0-1); EOSINOPHILS # (AUTO) 0.3 X10'3 (0-0.9); EOSINOPHILS % (AUTO) 4.5 % (0-6); HEMATOCRIT 31.9 % (42.0-52.0); HEMOGLOBIN 10.8 g/dl (14.0-17.9); LYMPHOCYTES % (AUTO) 29.6 % (21-51); MEAN CORPUSCULAR HEMOGLOBIN 32.7 PG (27.0-31.0); MEAN CORPUSCULAR HGB CONC 33.8 g/dL (33.0-36.5); MEAN CORPUSCULAR VOLUME 96.8 FL (78-98); MEAN PLATELET VOLUME 9.2 FL (7.4-10.4); MONOCYTES # (AUTO) 0.8 X10'3 (0-0.9); MONOCYTES % (AUTO) 11.7 % (2-12); NEUTROPHILS # (AUTO) 3.6 X10'3 (1.8-7.7); NEUTROPHILS % (AUTO) 53.8 % (42-75); PLATELET COUNT 217 X10'3 (140-440); RED BLOOD COUNT 3.29 X10'6 (4.70-6.10); RED CELL DISTRIBUTION WIDTH 13.8 % (11.5-14.5); WHITE BLOOD COUNT 6.7 X10'3 (4.5-11.0)
[2024-10-01 06:54] LABS: ALANINE AMINOTRANSFERASE 11 U/L (12-78); ALBUMIN 2.6 G/DL (3.4-5.0); ALBUMIN/GLOBULIN RATIO 0.8 (1.1-1.5); ALKALINE PHOSPHATASE 61 IU/L (46-116); ANION GAP 6 (8-16); ASPARTATE AMINO TRANSFERASE 8 U/L (10-37); BILIRUBIN,TOTAL 0.6 MG/DL (0.1-1.0); BLOOD UREA NITROGEN 9 MG/DL (7-18); BUN/CREATININE RATIO 13.4 (10.0-20.0); CALCIUM 8.7 MG/DL (8.5-10.1); CHLORIDE 108 MMOL/L (99-107); CREATININE 0.67 MG/DL (0.60-1.10); GLUCOSE 99 MG/DL (70-104); MAGNESIUM 1.6 MG/DL (1.5-2.4); POTASSIUM 3.7 MMOL/L (3.5-5.1); SODIUM 140 MMOL/L (135-145); TOTAL CARBON DIOXIDE 26.3 MMOL/L (24-32); TOTAL PROTEIN 5.7 G/DL (6.4-8.2); eCRCL 129 ML/MIN; eGFR > 90 ML/MIN
[2024-10-01 08:00] VITALS: RESP 16
[2024-10-01] MEDS: aspirin 325mg tablet PO SCH (08:18)
[2024-10-01] MEDS: atorvastatin 10mg tablet PO SCH (08:19)
[2024-10-01 10:00] VITALS: BP 95/70; PULSE 65; RESP 16; TEMP 97.2; O2SAT 97
[2024-10-01] MEDS ORDERED: ONDA-243 PO (10:53)
[2024-10-01] MEDS ORDERED: LINE600T11 PO (10:53)
[2024-10-01] MEDS ORDERED: PANT-47 PO (10:53)
[2024-10-01] MEDS ORDERED: K and/or MAG REPLACEMENT MC SCH (20:00)
[2024-10-01] MEDS ORDERED: ESCITALOPRAM 10 mg tablet 10 MG TABLET PO SCH (21:00)
== END 2024-10-01 13:36 | disposition home or self-care (01) | DRG 241 ==
LOC: ER 12:53 → ED HOLD 16:18 → ORTHO 4S 09-29 10:50
PROVIDERS: ADMIT Family Medicine; ATTEND Family Medicine
DX: K29.90 Gastroduodenitis, unspecified, without bleeding (principal); K85.90 Acute pancreatitis without necrosis or infection, unspecified; E87.1 Hypo-osmolality and hyponatremia; N39.0 Urinary tract infection, site not specified; K21.9 Gastro-esophageal reflux disease without esophagitis; F12.10 Cannabis abuse, uncomplicated; G89.4 Chronic pain syndrome; I10 Essential (primary) hypertension; I48.91 Unspecified atrial fibrillation; E78.5 Hyperlipidemia, unspecified; K86.2 Cyst of pancreas; F32.A Depression, unspecified; F41.9 Anxiety disorder, unspecified; M54.9 Dorsalgia, unspecified; F10.20 Alcohol dependence, uncomplicated; Y90.0 Blood alcohol level of less than 20 mg/100 ml; Z79.01 Long term (current) use of anticoagulants; Z59.00 Homelessness unspecified; Z87.891 Personal history of nicotine dependence; Z88.0 Allergy status to penicillin
CPT/HCPCS: 36415; 71045; 74176; 80053; 80061; 80305; 80320; 81001; 83036; 83605; 83690; 83735; 83880; 84100; 84484; 85025; 85610; 85730; 86677; 87040; 87077; 87081; 87088; 87186; 93005; 96374; 96375; 99285; G0378; J1644; J1956; J2270; J2405; J2470; J7030; J7040

== ENCOUNTER 2024-11-21 10:22 | Inpatient (IN) | payer MEDICAID ==
[~2024-11-21] VITALS: Ht 182.9 cm; Wt 78.6 kg
[~2024-11-21 10:22] MED LIST changes: -ESCI20TA29 PO; +ESCI5TAB PO; +ONDA-243 PO; +PANT40TA54 PO
[2024-11-21] MEDS: ondansetron/PF 4mg/2ml inj IV ONE (15:19)
[2024-11-21] MEDS: HYDROmorphone 1 mg/ml syringe IV ONE (15:19)
[2024-11-21] MEDS: normal saline 1000ml 1,000 ML IV ONE (15:20)
[2024-11-21 15:40] LABS: BASOPHILS % (AUTO) 0.3 % (0-1); EOSINOPHILS # (AUTO) 0.3 X10'3 (0-0.9); EOSINOPHILS % (AUTO) 2.5 % (0-6); HEMATOCRIT 37.3 % (42.0-52.0); HEMOGLOBIN 12.5 g/dl (14.0-17.9); LYMPHOCYTES # (AUTO) 2.2 X10'3 (1.1-4.8); LYMPHOCYTES % (AUTO) 21.3 % (21-51); MEAN CORPUSCULAR HEMOGLOBIN 32.1 PG (27.0-31.0); MEAN CORPUSCULAR HGB CONC 33.6 g/dL (33.0-36.5); MEAN CORPUSCULAR VOLUME 95.4 FL (78-98); MEAN PLATELET VOLUME 8.8 FL (7.4-10.4); MONOCYTES # (AUTO) 0.8 X10'3 (0-0.9); MONOCYTES % (AUTO) 7.6 % (2-12); NEUTROPHILS # (AUTO) 7.1 X10'3 (1.8-7.7); NEUTROPHILS % (AUTO) 68.3 % (42-75); PLATELET COUNT 242 X10'3 (140-440); RED BLOOD COUNT 3.91 X10'6 (4.70-6.10); RED CELL DISTRIBUTION WIDTH 15.3 % (11.5-14.5); WHITE BLOOD COUNT 10.4 X10'3 (4.5-11.0)
[2024-11-21 15:56] LABS: ALBUMIN 3.3 G/DL (3.4-5.0); ALBUMIN/GLOBULIN RATIO 0.9 (1.1-1.5); ALKALINE PHOSPHATASE 86 IU/L (46-116); AMYLASE 195 U/L (25-115); ANION GAP 9 (8-16); ASPARTATE AMINO TRANSFERASE 5 U/L (10-37); BILIRUBIN,TOTAL 0.5 MG/DL (0.1-1.0); BLOOD UREA NITROGEN 17 MG/DL (7-18); BUN/CREATININE RATIO 25.4 (10.0-20.0); CALCIUM 9.6 MG/DL (8.5-10.1); CHLORIDE 102 MMOL/L (99-107); CREATININE 0.67 MG/DL (0.60-1.10); GLUCOSE 80 MG/DL (70-104); POTASSIUM 3.8 MMOL/L (3.5-5.1); SODIUM 138 MMOL/L (135-145); TOTAL CARBON DIOXIDE 27.2 MMOL/L (24-32); TOTAL PROTEIN 7.1 G/DL (6.4-8.2); eCRCL 127 ML/MIN; eGFR > 90 ML/MIN
[2024-11-21 16:11] LABS: ALANINE AMINOTRANSFERASE 17 U/L (12-78); LIPASE 375 U/L (16-77)
[2024-11-21] MEDS ORDERED: iohexol 300mg/ml 100ml inj. ONE (16:40)
[2024-11-21] MEDS ORDERED: ondansetron/PF 4mg/2ml inj IV PRN (18:55)
[2024-11-21] MEDS ORDERED: bisacodyl 10mg suppository rectal RC PRN (18:55)
[2024-11-21] MEDS ORDERED: magnesium hydroxide 30ml (MOM) UD suspension PO PRN (18:55)
[2024-11-21] MEDS ORDERED: diphenhydrAMINE 25mg capsule PO PRN (18:55)
[2024-11-21] MEDS ORDERED: metoclopramide 5 mg/ml inj IV PRN (18:55)
[2024-11-21] MEDS ORDERED: diphenhydrAMINE 50 mg/ml inj IV PRN (18:55)
[2024-11-21] MEDS ORDERED: HYDROcodone/acetaminophen 5mg/325mg tablet PO PRN (18:55)
[2024-11-21] MEDS ORDERED: mag hydrox/Alum hydrox/simeth 30ml oral suspension PO PRN (18:55)
[2024-11-21] MEDS ORDERED: morphine 2 MG/ML inj. syringe IV PRN ×2 (18:55)
[2024-11-21] MEDS ORDERED: acetaminophen 325mg tablet PO PRN (18:55)
[2024-11-21] MEDS ORDERED: acetaminophen 650mg rectal suppository RC PRN (18:55)
[2024-11-21] MEDS ORDERED: ondansetron 4mg rapidly disintigrating tab PO PRN (18:55)
[2024-11-21] MEDS ORDERED: SINCALIDE IV ONE (19:15)
[2024-11-21] MEDS ORDERED: NORMAL SALINE IV ONE (19:15)
[2024-11-21] MEDS: normal saline 1000ml 1,000 ML IV SCH (19:16)
[2024-11-21] MEDS: docusate sod 100mg capsule PO SCH (19:16)
[2024-11-21 19:36] LABS: APTT 31 SECONDS (22-32); INR 1.3 INR; PROTHROMBIN TIME 12.9 SECONDS (9.0-12.0)
[2024-11-21 19:49] LABS: PHOSPHORUS 3.5 MG/DL (2.3-4.5)
[2024-11-21] MEDS ORDERED: temazepam 15mg capsule PO PRN (21:00)
[2024-11-22] VITALS (8 sets, daily range): BP systolic 96–128; BP diastolic 57–78; PULSE 81–106; RESP 13–18; TEMP 97.7–99; O2SAT 92–99
[2024-11-22] MEDS ORDERED: pantoprazole 40 MG vial IV SCH (00:10)
[2024-11-22] MEDS: HYDROmorphone inj. 0.5 MG/0.5 ML DISP.SYRIN IV PRN (00:16)
[2024-11-22] MEDS: levoFLOXACIN-Levaquin 500mg/D5 100 ML IV SCH (07:21)
[2024-11-22] MEDS: pantoprazole 40MG/NS 100ML BAG 100 ML IV SCH (10:00)
[2024-11-22] MEDS: ringers solution, lacted 1,000 ML IV ONE (12:57)
[2024-11-22 16:59] LABS: AMYLASE 139 U/L (25-115); LIPASE 168 U/L (16-77)
[2024-11-22] MEDS: apixaban 5mg tablet PO SCH (19:56)
[2024-11-22] MEDS ORDERED: pantoprazole 40mg Tablet.DR PO SCH (20:00)
[2024-11-22] MEDS ORDERED: LOVASTATIN PO SCH (21:00)
[2024-11-23] VITALS (8 sets, daily range): BP systolic 91–131; BP diastolic 59–78; PULSE 75–107; RESP 12–20; TEMP 97.2–99; O2SAT 94–100
[2024-11-23] MEDS: diltiazem CD 120mg capsule (once-daily) PO SCH (07:56)
[2024-11-23] MEDS: ESCITALOPRAM 10 mg tablet 10 MG TABLET PO SCH (07:57)
[2024-11-23] MEDS: atorvastatin 10mg tablet PO SCH (07:57)
[2024-11-23] MEDS: metoprolol succinate 25mg (24-HOUR) SR. Tablet PO SCH (08:00)
[2024-11-23 09:42] LABS: BASOPHILS % (AUTO) 0.3 % (0-1); EOSINOPHILS # (AUTO) 0.1 X10'3 (0-0.9); EOSINOPHILS % (AUTO) 1.9 % (0-6); HEMATOCRIT 32.9 % (42.0-52.0); LYMPHOCYTES # (AUTO) 1.3 X10'3 (1.1-4.8); LYMPHOCYTES % (AUTO) 18.9 % (21-51); MEAN CORPUSCULAR HEMOGLOBIN 32.4 PG (27.0-31.0); MEAN CORPUSCULAR HGB CONC 33.5 g/dL (33.0-36.5); MEAN CORPUSCULAR VOLUME 96.6 FL (78-98); MEAN PLATELET VOLUME 8.8 FL (7.4-10.4); MONOCYTES # (AUTO) 0.7 X10'3 (0-0.9); MONOCYTES % (AUTO) 9.7 % (2-12); NEUTROPHILS # (AUTO) 4.7 X10'3 (1.8-7.7); NEUTROPHILS % (AUTO) 69.2 % (42-75); PLATELET COUNT 177 X10'3 (140-440); RED BLOOD COUNT 3.41 X10'6 (4.70-6.10); RED CELL DISTRIBUTION WIDTH 14.7 % (11.5-14.5); WHITE BLOOD COUNT 6.8 X10'3 (4.5-11.0)
[2024-11-23 10:00] LABS: ALANINE AMINOTRANSFERASE 9 U/L (12-78); ALBUMIN 2.6 G/DL (3.4-5.0); ALBUMIN/GLOBULIN RATIO 0.7 (1.1-1.5); ALKALINE PHOSPHATASE 68 IU/L (46-116); ANION GAP 16 (8-16); ASPARTATE AMINO TRANSFERASE 12 U/L (10-37); BILIRUBIN,TOTAL 0.9 MG/DL (0.1-1.0); BLOOD UREA NITROGEN 10 MG/DL (7-18); BUN/CREATININE RATIO 14.9 (10.0-20.0); CALCIUM 8.6 MG/DL (8.5-10.1); CHLORIDE 103 MMOL/L (99-107); CREATININE 0.67 MG/DL (0.60-1.10); GLUCOSE 67 MG/DL (70-104); POTASSIUM 3.6 MMOL/L (3.5-5.1); SODIUM 139 MMOL/L (135-145); TOTAL CARBON DIOXIDE 20.2 MMOL/L (24-32); TOTAL PROTEIN 6.3 G/DL (6.4-8.2); eCRCL 127 ML/MIN; eGFR > 90 ML/MIN
[2024-11-23] MEDS ORDERED: SINCALIDE IV ONE ×2 (16:15→16:22)
[2024-11-23] MEDS ORDERED: NORMAL SALINE IV ONE ×2 (16:15→16:22)
[2024-11-23] MEDS: lactose-reduced food (Ensure Enlive) - 237ml bottle PO SCH (18:41)
[2024-11-23] MEDS: apixaban 5mg tablet PO SCH (18:51)
[2024-11-23] MEDS: HYDROcodone/acetaminophen 10/325mg tab PO PRN (18:52)
[2024-11-24 02:00] VITALS: BP 108/75; PULSE 70; RESP 16; TEMP 97.8; O2SAT 99
[2024-11-24 06:00] VITALS: BP 111/74; PULSE 88; RESP 14; TEMP 98.5; O2SAT 99
[2024-11-24 08:00] VITALS: RESP 14; O2SAT 99
[2024-11-24] MEDS: MULTIVIT-MIN/FERROUS GLUCONATE 9 MG/15 ML LIQUID PO SCH (08:38)
[2024-11-24 11:00] VITALS: BP 142/81; PULSE 71; RESP 12; TEMP 97.6; O2SAT 98
== END 2024-11-24 11:52 | disposition home or self-care (01) | DRG 282 ==
LOC: ER 10:23 → UNDOADMIN 18:58 → ED HOLD 18:58 → UNDOADMIN 19:33 → ED HOLD 19:33 → ORTHO 4S 11-22 00:40 → PCU 3S 11-22 16:40
PROVIDERS: ADMIT Family Medicine; ATTEND Internal Medicine Sleep Medicine
PROC: CF141ZZ Planar Nuclear Medicine Imaging of Gallbladder using Technetium 99m (Tc-99m) (ICD-10-PCS; principal; 2024-11-23)
DX: K85.90 Acute pancreatitis without necrosis or infection, unspecified (principal); I11.0 Hypertensive heart disease with heart failure; I50.32 Chronic diastolic (congestive) heart failure; D64.9 Anemia, unspecified; F10.20 Alcohol dependence, uncomplicated; F32.A Depression, unspecified; F41.9 Anxiety disorder, unspecified; M54.9 Dorsalgia, unspecified; E78.5 Hyperlipidemia, unspecified; F12.10 Cannabis abuse, uncomplicated; M16.12 Unilateral primary osteoarthritis, left hip; K86.2 Cyst of pancreas; G89.4 Chronic pain syndrome; I48.91 Unspecified atrial fibrillation; K21.9 Gastro-esophageal reflux disease without esophagitis; N30.20 Other chronic cystitis without hematuria; K86.1 Other chronic pancreatitis; Z79.01 Long term (current) use of anticoagulants; Z79.899 Other long term (current) drug therapy; Z88.0 Allergy status to penicillin; Z59.00 Homelessness unspecified; Z72.0 Tobacco use
CPT/HCPCS: 36415; 74178; 74181; 76700; 78226; 80053; 82150; 83690; 83735; 83880; 84100; 85025; 85610; 85730; 87081; 99285; A9537; G0378; J1171; J1956; J2405; J2470; J7030; J7120; Q9967

== ENCOUNTER 2024-12-17 05:44 | Emergency (ER) | payer MEDICAID ==
[~2024-12-17] VITALS: Ht 182.9 cm; Wt 76.1 kg
[~2024-12-17 05:44] MED LIST changes: -ASPI-1264 PO; -PANT-47 PO
[2024-12-17 06:38] LABS: BASOPHILS % (AUTO) 0.6 % (0-1); EOSINOPHILS # (AUTO) 0.3 X10'3 (0-0.9); HEMATOCRIT 37.1 % (42.0-52.0); HEMOGLOBIN 12.6 g/dl (14.0-17.9); LYMPHOCYTES # (AUTO) 2.3 X10'3 (1.1-4.8); MEAN CORPUSCULAR HEMOGLOBIN 32.5 PG (27.0-31.0); MEAN CORPUSCULAR HGB CONC 33.8 g/dL (33.0-36.5); MEAN CORPUSCULAR VOLUME 96.1 FL (78-98); MEAN PLATELET VOLUME 8.7 FL (7.4-10.4); MONOCYTES # (AUTO) 0.7 X10'3 (0-0.9); MONOCYTES % (AUTO) 8.6 % (2-12); NEUTROPHILS # (AUTO) 4.8 X10'3 (1.8-7.7); NEUTROPHILS % (AUTO) 58.8 % (42-75); PLATELET COUNT 225 X10'3 (140-440); RED BLOOD COUNT 3.86 X10'6 (4.70-6.10); RED CELL DISTRIBUTION WIDTH 15.3 % (11.5-14.5); WHITE BLOOD COUNT 8.1 X10'3 (4.5-11.0)
[2024-12-17] MEDS: pantoprazole 40 MG vial IV ONE (06:38)
[2024-12-17] MEDS: morphine 4 MG/ML inj SYRINge IV ONE (06:38)
[2024-12-17] MEDS: OLANZapine **IM** 10 mg inj. IM ONE (06:39)
[2024-12-17 06:51] LABS: ALANINE AMINOTRANSFERASE 21 U/L (12-78); ALBUMIN 3.4 G/DL (3.4-5.0); ALBUMIN/GLOBULIN RATIO 0.8 (1.1-1.5); ALKALINE PHOSPHATASE 82 IU/L (46-116); AMYLASE 136 U/L (25-115); ANION GAP 11 (8-16); ASPARTATE AMINO TRANSFERASE 22 U/L (10-37); BILIRUBIN,TOTAL 0.6 MG/DL (0.1-1.0); BLOOD UREA NITROGEN 14 MG/DL (7-18); BUN/CREATININE RATIO 22.6 (10.0-20.0); CALCIUM 9.4 MG/DL (8.5-10.1); CHLORIDE 103 MMOL/L (99-107); CREATININE 0.62 MG/DL (0.60-1.10); ETHANOL < 10 MG/DL (<10); GLUCOSE 92 MG/DL (70-104); LIPASE 130 U/L (16-77); MAGNESIUM 2.4 MG/DL (1.5-2.4); SODIUM 140 MMOL/L (135-145); TOTAL CARBON DIOXIDE 26.5 MMOL/L (24-32); TOTAL PROTEIN 7.6 G/DL (6.4-8.2); eCRCL 135 ML/MIN; eGFR > 90 ML/MIN
[2024-12-17 06:54] LABS: POTASSIUM 3.9 MMOL/L (3.5-5.1)
[2024-12-17] MEDS ORDERED: iohexol 300mg/ml 100ml inj. ONE (06:57)
[2024-12-17] MEDS ORDERED: IBUP-1984 PO (07:08)
[2024-12-17] MEDS ORDERED: IBUP-2766 PO (07:08)
[2024-12-17] MEDS ORDERED: DIGO125T PO (07:08)
[2024-12-17] MEDS ORDERED: GABA-530 PO (07:08)
[2024-12-17] MEDS ORDERED: OMEP40CA21 PO (10:20)
[2024-12-17] MEDS ORDERED: OLAN2.5T77 PO (10:22)
[2024-12-17 10:44] VITALS: BP 116/79; PULSE 86; RESP 17; O2SAT 98
== END 2024-12-17 10:35 | disposition home or self-care (01) ==
LOC: ER 05:45
DX: R10.84 Generalized abdominal pain (principal); I10 Essential (primary) hypertension; I48.91 Unspecified atrial fibrillation; F32.A Depression, unspecified; F41.9 Anxiety disorder, unspecified; E78.5 Hyperlipidemia, unspecified; F10.20 Alcohol dependence, uncomplicated; F12.10 Cannabis abuse, uncomplicated; Z88.0 Allergy status to penicillin
CPT/HCPCS: 36415; 74177; 80053; 80320; 82150; 83690; 83735; 85025; 96372; 96374; 96375; 99285; J2270; J2470; J3490; Q9967

== ENCOUNTER 2025-01-27 19:20 | Emergency (ER) | payer MEDICAID ==
[~2025-01-27] VITALS: Ht 182.9 cm; Wt 83.2 kg
[~2025-01-27 19:20] MED LIST changes: +DIGO125T PO; -DILT120C52 PO; +GABA-530 PO; +IBUP-1984 PO; +IBUP-2766 PO; -LOVA20TA2 PO; +OLAN2.5T77 PO; -ONDA-243 PO; -PANT40TA54 PO
[2025-01-27] MEDS: ondansetron 4mg rapidly disintigrating tab PO ONE (19:43)
[2025-01-27] MEDS: dicyclomine 10 MG capsule PO ONE (19:43)
[2025-01-27 20:05] LABS: BASOPHILS # (AUTO) 0.1 X10'3 (0-0.2); BASOPHILS % (AUTO) 0.8 % (0-1); EOSINOPHILS # (AUTO) 0.2 X10'3 (0-0.9); EOSINOPHILS % (AUTO) 2.8 % (0-6); HEMATOCRIT 34.5 % (42.0-52.0); HEMOGLOBIN 11.7 g/dl (14.0-17.9); LYMPHOCYTES # (AUTO) 2.7 X10'3 (1.1-4.8); LYMPHOCYTES % (AUTO) 37.3 % (21-51); MEAN CORPUSCULAR HEMOGLOBIN 32.3 PG (27.0-31.0); MEAN CORPUSCULAR HGB CONC 33.9 g/dL (33.0-36.5); MEAN CORPUSCULAR VOLUME 95.3 FL (78-98); MEAN PLATELET VOLUME 8.4 FL (7.4-10.4); MONOCYTES # (AUTO) 0.5 X10'3 (0-0.9); MONOCYTES % (AUTO) 7.1 % (2-12); NEUTROPHILS # (AUTO) 3.8 X10'3 (1.8-7.7); PLATELET COUNT 220 X10'3 (140-440); RED BLOOD COUNT 3.62 X10'6 (4.70-6.10); RED CELL DISTRIBUTION WIDTH 14.9 % (11.5-14.5); WHITE BLOOD COUNT 7.3 X10'3 (4.5-11.0)
[2025-01-27 20:06] LABS: BILIRUBIN,URINE NEGATIVE (Neg); CLARITY,URINE CLEAR (Clear); COLOR,URINE YELLOW (Yellow); GLUCOSE, URINE NEGATIVE (Neg); KETONES,URINE NEGATIVE (Neg); LEUKOCYTE ESTERASE ,URINE NEGATIVE (Neg); NITRITES, URINE NEGATIVE (Neg); OCCULT BLOOD,URINE NEGATIVE (Neg); PROTEIN,URINE NEGATIVE (Neg); UROBILINOGEN,URINE 0.2 E.U/dL (0.2-1.0)
[2025-01-27 20:07] LABS: UA COLLECTION TYPE NON-SPECIFIED
[2025-01-27 20:12] LABS: ALANINE AMINOTRANSFERASE 23 U/L (12-78); ALBUMIN 3.3 G/DL (3.4-5.0); ALBUMIN/GLOBULIN RATIO 0.9 (1.1-1.5); ALKALINE PHOSPHATASE 89 IU/L (46-116); ANION GAP 9 (8-16); ASPARTATE AMINO TRANSFERASE 24 U/L (10-37); BILIRUBIN,TOTAL 0.4 MG/DL (0.1-1.0); BLOOD UREA NITROGEN 19 MG/DL (7-18); BUN/CREATININE RATIO 26.4 (10.0-20.0); CALCIUM 9.4 MG/DL (8.5-10.1); CHLORIDE 105 MMOL/L (99-107); CREATININE 0.72 MG/DL (0.60-1.10); GLUCOSE 96 MG/DL (70-104); POTASSIUM 3.6 MMOL/L (3.5-5.1); SODIUM 141 MMOL/L (135-145); eCRCL 118 ML/MIN; eGFR > 90 ML/MIN
[2025-01-27 20:14] LABS: AMYLASE 176 U/L (25-115); CREATINE KINASE 90 U/L (39-308); ETHANOL < 10 MG/DL (<10); LIPASE 159 U/L (16-77); MAGNESIUM 1.7 MG/DL (1.5-2.4)
[2025-01-27 20:16] LABS: URINE AMPHETAMINE SCREEN NEGATIVE (Neg); URINE BARBITUATE SCREEN NEGATIVE (Neg); URINE BENZODIAZEPINES SCREEN NEGATIVE (Neg); URINE CANNABINOID SCREEN POSITIVE (Neg); URINE COCAINE SCREEN NEGATIVE (Neg); URINE METHADONE SCREEN NEGATIVE (Neg); URINE OPIATE SCREEN NEGATIVE (Neg); URINE PHENCYCLIDINE SCREEN NEGATIVE (Neg)
[2025-01-27] MEDS ORDERED: DICY10CA88 PO (20:54)
[2025-01-27] MEDS ORDERED: ONDA-245 PO (20:54)
[2025-01-27 21:46] VITALS: BP 132/77; PULSE 61; RESP 18; TEMP 97.8; O2SAT 95
== END 2025-01-27 21:29 | disposition home or self-care (01) ==
LOC: ER 19:21
DX: K86.1 Other chronic pancreatitis (principal); I10 Essential (primary) hypertension; I48.91 Unspecified atrial fibrillation; G89.29 Other chronic pain; M54.9 Dorsalgia, unspecified; F41.9 Anxiety disorder, unspecified; F32.A Depression, unspecified; F12.90 Cannabis use, unspecified, uncomplicated; F10.90 Alcohol use, unspecified, uncomplicated; Z88.0 Allergy status to penicillin; Z79.01 Long term (current) use of anticoagulants; Z79.1 Long term (current) use of non-steroidal anti-inflammatories (NSAID); Z79.899 Other long term (current) drug therapy; Z59.00 Homelessness unspecified; Y90.9 Presence of alcohol in blood, level not specified
CPT/HCPCS: 36415; 80053; 80305; 80320; 81003; 82150; 82550; 83690; 83735; 84484; 85025; 93005; 99284

== ENCOUNTER 2025-08-03 11:56 | Inpatient (IN) | payer MEDICAID ==
[~2025-08-03] VITALS: Ht 182.9 cm; Wt 77.7 kg
[~2025-08-03 11:56] MED LIST changes: +AMIO200T76 PO; -DIGO125T PO; +DOXY-224 PO; -IBUP-1984 PO; -IBUP-2766 PO; +LIPA1CAP30 PO; +NICO-687 TD; +ONDA-245 PO; +PANT-47 PO; +POTA-207 PO
[2025-08-03 12:36] LABS: MEAN PLATELET VOLUME 8.1 FL (7.4-10.4); RED CELL DISTRIBUTION WIDTH 14.1 % (11.5-14.5)
[2025-08-03 12:50] LABS: CREATININE 0.62 MG/DL (0.60-1.10); TOTAL CARBON DIOXIDE 29.9 MMOL/L (24-32); eCRCL 137 ML/MIN; eGFR > 90 ML/MIN
--- NOTE | 2025-08-03 14:23 | Physician Documentation ---
History of Present Illness Chief Complaint: Abdominal Pain Stated Complaint: PANCREATITIS Time Seen by MD: 14:03 Primary Medical Doctor: [facility] Source: patient (6), old records Mode of Arrival: POV HPI Patient comes in for evaluation of abdominal pain which he believes is a recurrence of his pancreatitis. Patient has had numerous ED visits in the past for acute on chronic pancreatitis as well as abdominal pain, has not had any alcohol for over a year, reports that he occasionally gets flare ups of his pancreatitis. Yesterday afternoon after eating some beef jerky he had onset of burning pain which is over the entire epigastric area. He has been nauseated but not vomiting yet, nausea is improved after taking an antiemetic that he was given last time he was here. Bowel movements have been normal, no hematochezia or melena has been noted. Patient has been unable to eat secondary to pain, and when he tried to eat some cereal today the pain became much worse. Of note, the patient had been seen for upper GI bleed in January and had been placed on Protonix as well as his Pancrease, but has been completely out of medications for the last five months. He reports that he just had been delivered yesterday but has not started taking them yet. Medication Reconciliation Allergies: Coded Allergies: Penicillins (Verified Allergy, Unknown, 08/03/25) Scheduled Amiodarone HCl (Amiodarone HCl), 1 TAB PO DAILY, (Reported) Apixaban (Eliquis), 1 TAB PO Q12H, (Reported) Atorvastatin Calcium* (Lipitor*), 1 TAB PO DAILY, (Reported) Escitalopram Oxalate* (Lexapro*), 2 TAB PO DAILY, (Reported) Gabapentin (Gabapentin), 300 MG PO BID, (Reported) Lisinopril (Lisinopril), 1 TAB PO DAILY, (Reported) Metoprolol Succinate (Metoprolol Succinate), 1 TAB PO DAILY, (Reported) Pantoprazole Sodium (Pantoprazole Sodium), 1 TAB PO DAILY, (Reported) Scheduled PRN Albuterol Sulfate (Ventolin Hfa), 1 PUFF INH Q4H PRN for SOB or wheezing, (Reported) Discontinued Medications Amiodarone Hcl (Cordarone), 200 MG PO BID Discontinued Reason: patient no longer taking Doxycycline Hyclate (Doxycycline Hyclate), 100 MG PO BID@0830,1730 Discontinued Reason: patient no longer taking Gabapentin (Gabapentin), 1 CAP PO DAILY, (Reported) Discontinued Reason: patient no longer taking Lipase/Protease/Amylase (Pancredeangelo Cedeno 16,800 Unit Cap), 1 CAP PO CC Discontinued Reason: patient no longer taking Nicotine 21 MG Patch* (Habitrol 21 MG Patch*), 1 PATCH TD DAILY Discontinued Reason: patient no longer taking Olanzapine (Olanzapine), 1 TAB PO BID PRN for abdominal cramps Discontinued Reason: patient no longer taking Ondansetron 8mg ODT (Ondansetron Odt), 1 TAB PO Q8H Discontinued Reason: patient no longer taking Pantoprazole Sodium (PROTONIX tablet), 40 MG PO DAILY Discontinued Reason: patient no longer taking Potassium Chloride* (K-Dur*), 1 TAB PO DAILY Discontinued Reason: patient no longer taking Past Medical History Past Medical History: Atrial Fibrillation, Hypertension, COPD, GI Bleed, Pancreatitis, Hernia, Chronic Back Pain, Anxiety, Depression Past Surgical History: noncontributory Smoking Status: Current every day smoker Alcohol Use: Sober (One year and five days) Drug Use: marijuana Lives with: Family Lives In: Homeless Occupation: disabled Review of Systems All Other Systems at this time: Reviewed and Negative Physical Exam Vital Signs: Temperature: 97.9, Source: Oral, Heart Rate: 46, Respiratory Rate: 19, BP: 131/76, Pulse Oximetry: 98, Weight: 77.700 Oxygen Flow Rate: 0 Physical Exam General: Pt is awake, alert, oriented x4 in mild distress and well appearing. Head: Normocephalic and atraumatic. Eyes: Conjunctiva normal. ENT: Mucous membranes moist. Neck: Supple. Chest: Clear to auscultation bilaterally, without rales, rhonchi, or wheezes. There is no accessory muscle use or retractions. Cardiac: Regular rate and rhythm without murmurs, gallops or rubs. Palpation of the chest wall is normal. Abd: Soft, nondistended, significantly tender in the epigastrium, with normoactive bowel sounds. No guarding or rebound. Extremities: Within normal limits without cyanosis, clubbing, or edema. Skin: [place], warm and dry with no significant rash appreciated. Neuro: Cranial nerves II-XII grossly intact. The gait is normal. Progress Results/Orders Results/Orders Orders - IKE ALMEIDA MD Urinalysis, Cult If Indicated (08/03/25 12:08) Straight Cath For Urine Sample (08/03/25 12:08) Completed Orders - IKE AMLEIDA MD Cbc/Diff (08/03/25 12:08) BMP (08/03/25 12:08) Lipase (08/03/25 12:08) CMP (08/03/25 12:08) Vital Signs 08/03/25 08/03/25 08/03/25 12:01 13:13 13:18 Temp 97.9 Pulse 54 46 Resp 22 20 19 B/P (MAP) 126/71 131/76 (94) Pulse Ox 97 98 O2 Flow Rate 0 0 Laboratory Tests Test 08/03/25 12:22 White Blood Count 9.7 Red Blood Count 4.22 L Hemoglobin 13.9 L Hematocrit 40.8 L Mean Corpuscular Volume 96.7 Mean Corpuscular Hemoglobin 33.1 H Mean Corpuscular Hemoglobin Concent 34.2 Red Cell Distribution Width 14.1 Platelet Count 212 Mean Platelet Volume 8.1 Neutrophils (%) (Auto) 65.3 Lymphocytes (%) (Auto) 24.5 Monocytes (%) (Auto) 8.2 Eosinophils (%) (Auto) 1.2 Basophils (%) (Auto) 0.8 Neutrophils # (Auto) 6.4 Lymphocytes # (Auto) 2.4 Monocytes # (Auto) 0.8 Eosinophils # (Auto) 0.1 Basophils # (Auto) 0.1 CBC Comment Sodium Level 141 Potassium Level 3.8 Chloride Level 105 Carbon Dioxide Level 29.9 Anion Gap 6 L Blood Urea Nitrogen 13 Creatinine 0.62 Estimated GFR/1.73 m2 > 90 BUN/Creatinine Ratio 21.0 H Glucose Level 101 Calcium Level 9.2 Total Bilirubin 0.6 Aspartate Amino Transf (AST/SGOT) 23 Alanine Aminotransferase (ALT/SGPT) 27 Alkaline Phosphatase 82 Total Protein 7.1 Albumin 3.7 Globulin 3.4 Albumin/Globulin Ratio 1.1 Lipase > 375 H Chemistry Comments Consults/PCP Consults/PCP : Time Call Requested: 14:24 Consult Reason/Comments: Hospitalist Additional Comment 16:50 Dr. Sibley will admit Medical Decision Making Additional Comments Patient presented with epigastric discomfort. He has a history of peptic ulcer disease and GI bleed, but no recent vomiting and no melena to suggest upper GI bleed as a source of his pain today. Although the patient does not drink, he has had repeated bouts of acute on chronic pancreatitis with minimal elevations of his lipase level; today his level is exceedingly elevated, indicating acute pancreatitis as a cause of his pain. Patient will require NPO status, bowel rest, IV hydration, pain meds, antiemetics. CT deferred as patient has a known history of prior pancreatitis and there is no evidence for sepsis today. Patient to be admitted to the hospitalist service for further evaluation and management. Departure Time of Disposition: 14:23 Admitted to Inpatient Unit: yes, to hospitalist Impression: Primary Impression: Pancreatitis Qualified Codes: K85.90 - Acute pancreatitis without necrosis or infection, unspecified Additional Impression: Abdominal pain Qualified Codes: R10.13 - Epigastric pain Condition: Guarded Referrals: NO PRIMARY CARE PROVIDER (PCP) Education Educated: Patient Educated regarding: diagnosis, treatment IKE ALMEIDA MD Aug 03, 2025 14:23
[2025-08-03] MEDS: normal saline 1000ML IV soln IVB ONE (14:29)
[2025-08-03] MEDS: ondansetron/PF 4mg/2ml inj IV ONE (14:29)
[2025-08-03] MEDS ORDERED: AMIO200T73 PO (15:07)
[2025-08-03] MEDS ORDERED: PANT40TA54 PO (15:07)
[2025-08-03] MEDS ORDERED: ALBU18HF2 INH (15:07)
[2025-08-03] MEDS ORDERED: LISI5TAB22 PO (15:07)
[2025-08-03] MEDS ORDERED: magnesium sulf-water 2g/50mL 50 ML IV PRN (17:00)
[2025-08-03] MEDS ORDERED: mag hydrox/Alum hydrox/simeth 30ml oral suspension PO PRN (17:00)
[2025-08-03] MEDS ORDERED: magnesium hydroxide 30ml (MOM) UD suspension PO PRN (17:00)
[2025-08-03] MEDS ORDERED: magnesium sulf-water 4G/100mL 100 ML IV PRN (17:00)
[2025-08-03] MEDS ORDERED: potassium Cl 40MEQ/1/2NS 520ml 520 ML IV PRN (17:00)
[2025-08-03] MEDS ORDERED: potassium Cl 20 mEq SR tablet PO PRN ×2 (17:00)
[2025-08-03] MEDS ORDERED: ondansetron/PF 4mg/2ml inj IV PRN (17:00)
[2025-08-03] MEDS: normal saline 1000ml 1,000 ML IV SCH (17:45)
[2025-08-03] MEDS: K and/or MAG REPLACEMENT MC SCH (18:48)
[2025-08-03] MEDS: docusate sod 100mg capsule PO SCH (19:39)
[2025-08-03] MEDS: enoxaparin 40mg/0.4ml syringe SQ SCH (19:44)
--- NOTE | 2025-08-03 20:17 | HISTORY AND PHYSICAL ---
History & Physical Providers to CC ~ History of Present Illness Reason for Admit\Complaint: Acute exacerbation of chronic pancreatitis History of Present Illness This is a 59-year-old male who has had multiple admissions for pancreatitis in the past however he has only had one admission since he became sober from alcohol on July 27, 2024. The patient arrives today with significant abdominal pain in the upper mid abdomen without any radiation denies any fever or chills he states that he was eating beef jerky when this occurred. On arrival to ED the patient is lipase is greater than 375 the patient is moderately to significantly tender in the upper mid abdominal region. The patient is states that this episode is not as significant as prior episodes that led to hospitalization. The patient informs me that his symptoms improved significantly when he was given pancreatic enzymes last hospitalization would like to start these this hospitalization. The patient has no other complaints he does have atrial fibrillation in his heart rate currently is in the 40s to 50s. Patient's metoprolol and amiodarone are held for now. We will continue apixaban the patient has ordered a low-fat diet and IV fluids are being administered along with PRN IV Dilaudid Allergies: Coded Allergies: Penicillins (Verified Allergy, Unknown, 08/03/25) Home Medications Home Medications Active Reported Amiodarone HCl 200 Mg Tablet 1 Tab PO DAILY Ventolin Hfa (Albuterol Sulfate) 90 Mcg Hfa.aer.ad 1 Puff INH Q4H PRN Pantoprazole Sodium 40 Mg Tablet.dr 1 Tab PO DAILY Lisinopril 5 Mg Tablet 1 Tab PO DAILY Gabapentin 100 Mg Capsule 300 Mg PO BID Lexapro* (Escitalopram Oxalate) 5 Mg Tablet 2 Tab PO DAILY Lipitor* (Atorvastatin Calcium) 10 Mg Tablet 1 Tab PO DAILY Metoprolol Succinate 100 Mg Tab.sr.24h 1 Tab PO DAILY Eliquis (Apixaban) 5 Mg Tablet 1 Tab PO Q12H Past Medical History Past Medical History Atrial fibrillation COPD Pancreatitis Hypertension Past Surgical History Surgical History Comment Left elbow Umbilical hernia repair Family History Family History: FH: diabetes mellitus CHILD, Name: Jackie Zuñiga, Born 05/21/86, Age: 39, Not a twin, Adopted Past Social History Social History Comment Half a pack of cigarettes a day, does not drink alcohol, smokes cannabis however does not use any illicit drugs. Full code status ROS ROS Except for positives in the HPI the rest of the 14 point review systems is negative Exam Vitals: Vital Signs Date Time Temp Pulse Resp B/P (MAP) Pulse Ox O2 Delivery O2 Flow Rate FiO2 08/03/25 20:01 51 18 127/72 (90) 98 0 08/03/25 12:01 97.9 General: Gen. No acute distress alert and oriented 4 Lungs clear to ascultation bilaterally, no wheezes rales or rhonchi appreciated Heart normal sinus rhythm no murmurs rubs or clicks noted Abdomen soft significant mid upper abdominal tenderness bowel sounds are normoactive Lower extremities no clubbing cyanosis, nor edema appreciated bilaterally Diagnostic Data Last Recorded Lab Results: 08/03/25 1222 08/03/25 1222 Counseling Services Smoking & Tobacco Cessation: > 10 Minutes Advance Care Planning Advanced Care plannin - 30 Minutes Problems: (1) Pancreatitis Status: Acute Additional Plan # acute exacerbation of chronic pancreatitis A low-fat diet IV fluids IV Dilaudid PRN pain Pancreatic enzymes Trend lipase # atrial fibrillation Currently bradycardic Hold amiodarone Hold metoprolol Continue apixaban for DVT and stroke prophylaxis # hypertension Currently normotensive Continue lisinopril # Tobacco abuse-I spent 11 minutes discussing smoking cessation with the patient including the risk of continuing smoke: Lung cancer, stroke, heart attack,The expense of smoking cigarettes and how cigarettes have been scientifically engineered to be as addictive as humanly possible. The patient has declined a nicotine patch # depression Continue Lexapro # DVT prophylaxis SCDs Apixaban I spent a total of 17 minutes on reviewing various resuscitative measures/ ACP with the patient at the time of admission. The patient has decided on full code status Date of Service: Aug 03, 2025 Billing Provider: RABIA TREVINO DO Common Visit Codes: 43205-[id number] INP/OBS CARE (HIGH) Secondary Visit Codes: 36032-MBSCR CHNG SMOKING >10MIN, 08634-[id number] CARE PLAN 30 MINUTES Problem Qualifiers (1) Pancreatitis: Chronicity: acute Pancreatitis type: unspecified pancreatitis type Acute pancreatitis complication: unspecified Qualified Codes: K85.90 - Acute pancreatitis without necrosis or infection, unspecified RABIA TREVINO DO Aug 03, 2025 20:17
[2025-08-03 21:55] LABS: LEUKOCYTE ESTERASE ,URINE NEGATIVE (Neg); NITRITES, URINE NEGATIVE (Neg); OCCULT BLOOD,URINE NEGATIVE (Neg)
[2025-08-03 21:57] LABS: UA COLLECTION TYPE NON-SPECIFIED
[2025-08-03 22:00] VITALS: BP 122/73; PULSE 53; RESP 20; TEMP 97.4; O2SAT 98
[2025-08-04] VITALS (7 sets, daily range): BP systolic 113–130; BP diastolic 58–76; PULSE 51–76; RESP 16–17; TEMP 97.4–99.2; O2SAT 96–97
[2025-08-04] MEDS: HYDROmorphone inj. 0.5 MG/0.5 ML DISP.SYRIN IV PRN (03:36)
[2025-08-04 06:05] LABS: MEAN PLATELET VOLUME 8.4 FL (7.4-10.4); RED CELL DISTRIBUTION WIDTH 13.8 % (11.5-14.5)
[2025-08-04 06:37] LABS: CREATININE 0.50 MG/DL (0.60-1.10); TOTAL CARBON DIOXIDE 27.4 MMOL/L (24-32); eCRCL 170 ML/MIN; eGFR > 90 ML/MIN
[2025-08-04] MEDS: pantoprazole 40mg Tablet.DR PO SCH (07:47)
[2025-08-04] MEDS: ESCITALOPRAM 10 mg tablet 10 MG TABLET PO SCH (07:47)
[2025-08-04] MEDS: LIPASE/PROTEASE/AMYLASE 10,500 units CAPSULE.DR PO SCH (07:50)
[2025-08-04] MEDS: nicotine 14mg patch - 24hr TD SCH (09:17)
[2025-08-04] MEDS ORDERED: HYDROcodone/acetaminophen 5mg/325mg tablet PO PRN (16:10)
[2025-08-04] MEDS: HYDROcodone/acetaminophen 10/325mg tab PO PRN (17:22)
--- NOTE | 2025-08-04 22:37 | PROGRESS NOTE ---
Daily Progress Note Providers to CC ~ Antibiotic Timeout Antibiotic Ordered?: No Subjective The patient continues to have significant epigastric pain- the patient is requesting [place] for his pain - his lipase is downtrending Objective Vital Signs Date Time Temp Pulse Resp B/P (MAP) Pulse Ox O2 Delivery O2 Flow Rate FiO2 08/04/25 18:22 17 08/04/25 10:48 98.1 76 115/75 (88) 97 Room Air 08/04/25 03:22 0.0 Result Diagram: 08/04/25 0531 08/04/25 0531 Gen. No acute distress alert and oriented 4 Lungs clear to ascultation bilaterally, no wheezes rales or rhonchi appreciated Heart normal sinus rhythm no murmurs rubs or clicks noted Abdomen soft moderate epigastric tenderness bowel sounds are normoactive Lower extremities no clubbing cyanosis, nor edema appreciated bilaterally Problem\Assessment\Plan Problems/Diagnosis: (1) Pancreatitis # acute exacerbation of chronic pancreatitis A low-fat diet IV fluids IV Dilaudid PRN pain Pancreatic enzymes Trend lipase- downtrending # atrial fibrillation Heart rate is no longer bradycardic Hold amiodarone Restart metoprolol succinate at 50 mg daily and 100 mg daily at home Continue apixaban for DVT and stroke prophylaxis # hypertension Currently normotensive Continue lisinopril # Tobacco abuse-I spent 11 minutes discussing smoking cessation with the patient including the risk of continuing smoke: Lung cancer, stroke, heart attack,The expense of smoking cigarettes and how cigarettes have been scientifically engineered to be as addictive as humanly possible. The patient has declined a nicotine patch # depression Continue Lexapro # DVT prophylaxis SCDs Apixaban Date of Service: Aug 04, 2025 Billing Provider: RABIA TREVINO DO Common Visit Codes: [id number] INP/OBS CARE(HIGH) Problem Qualifiers (1) Pancreatitis: Qualified Codes: K85.90 - Acute pancreatitis without necrosis or infection, unspecified RABIA TREVINO DO Aug 04, 2025 22:37
[2025-08-05 05:30] VITALS: BP 105/64; PULSE 64; RESP 16; TEMP 98.5; O2SAT 96
[2025-08-05 05:40] LABS: MEAN PLATELET VOLUME 8.2 FL (7.4-10.4); RED CELL DISTRIBUTION WIDTH 13.3 % (11.5-14.5)
[2025-08-05 05:59] LABS: CREATININE 0.54 MG/DL (0.60-1.10); TOTAL CARBON DIOXIDE 28.2 MMOL/L (24-32); eCRCL 158 ML/MIN; eGFR > 90 ML/MIN
[2025-08-05 06:51] VITALS: RESP 18; O2SAT 96
[2025-08-05] MEDS: metoprolol succinate 25mg (24-HOUR) SR. Tablet PO SCH (08:00)
[2025-08-05] MEDS ORDERED: LIPASE/PROTEASE/AMYLASE 10,500 units CAPSULE.DR PO SCH (08:46)
[2025-08-05] MEDS: LIPASE/PROTEASE/AMYLASE 10,500 units CAPSULE.DR PO SCH ×2 (08:53→12:48)
[2025-08-05 09:05] VITALS: BP 100/68; RESP 53
[2025-08-05 10:00] VITALS: BP 92/55; PULSE 59; RESP 17; TEMP 98.2; O2SAT 97
[2025-08-05 18:00] VITALS: BP 124/81; PULSE 89; RESP 14; TEMP 98; O2SAT 98
--- NOTE | 2025-08-05 18:31 | PROGRESS NOTE ---
Daily Progress Note Providers to CC ~ Antibiotic Timeout Antibiotic Ordered?: No Subjective The patient was not eating much this morning and per Cely TREVIZO the patient was continuing to complain of significant abdominal pain by the time II saw the patient mid afternoon his symptoms had improved significantly and the patient was able to eat well and was only mildly tender in his middle upper abdominal region- I offered to discharge the patient in the afternoon he did request to stay until the morning to make sure that his symptoms are stable. Objective Vital Signs Date Time Temp Pulse Resp B/P (MAP) Pulse Ox O2 Delivery O2 Flow Rate FiO2 08/05/25 12:09 19 08/05/25 10:00 98.2 59 92/55 (67) 97 Room Air 08/05/25 06:51 0.0 Result Diagram: 08/05/2552408/05/25524 Gen. No acute distress alert and oriented 4 Lungs clear to ascultation bilaterally, no wheezes rales or rhonchi appreciated Heart normal sinus rhythm no murmurs rubs or clicks noted Abdomen soft mild epigastric tenderness bowel sounds are normoactive Lower extremities no clubbing cyanosis, nor edema appreciated bilaterally Problem\Assessment\Plan Problems/Diagnosis: (1) Pancreatitis # acute exacerbation of chronic pancreatitis A low-fat diet IV fluids IV Dilaudid PRN pain Pancreatic enzymes Trend lipase- normalized 08/05 nearly resolved # atrial fibrillation Remains bradycardic Hold amiodarone Hold metoprolol succinate Continue apixaban for DVT and stroke prophylaxis # hypertension Currently normotensive Continue lisinopril # Tobacco abuse-I spent 11 minutes discussing smoking cessation with the patient including the risk of continuing smoke: Lung cancer, stroke, heart attack,The expense of smoking cigarettes and how cigarettes have been scientifically engineered to be as addictive as humanly possible. The patient has declined a nicotine patch # depression Continue Lexapro # DVT prophylaxis SCDs Apixaban Disposition: Discharge in the a.m. Date of Service: Aug 05, 2025 Billing Provider: RABIA TREVINO DO Common Visit Codes: [id number] INP/OBS CARE(HIGH) Problem Qualifiers (1) Pancreatitis: Qualified Codes: K85.90 - Acute pancreatitis without necrosis or infection, unspecified RABIA TREVINO DO Aug 05, 2025 18:31
[2025-08-05] MEDS ORDERED: HYDR-3972 PO (18:36)
[2025-08-05] MEDS ORDERED: LIPA1CAP18 PO (18:36)
[2025-08-05 23:00] VITALS: BP 101/61; PULSE 55; RESP 16; TEMP 97.5; O2SAT 97
[2025-08-06 05:56] LABS: MEAN PLATELET VOLUME 9.0 FL (7.4-10.4); RED CELL DISTRIBUTION WIDTH 13.4 % (11.5-14.5)
[2025-08-06 06:35] LABS: CREATININE 0.55 MG/DL (0.60-1.10); TOTAL CARBON DIOXIDE 27.2 MMOL/L (24-32); eCRCL 155 ML/MIN; eGFR > 90 ML/MIN
[2025-08-06 06:48] VITALS: BP 97/50; PULSE 54; RESP 16; TEMP 97.3; O2SAT 97
[2025-08-06 06:57] VITALS: BP 111/58; PULSE 57; O2SAT 98
[2025-08-06 08:00] VITALS: RESP 18
[2025-08-06 10:22] VITALS: RESP 16; O2SAT 97
[2025-08-06 10:30] VITALS: BP 102/59; PULSE 52; RESP 16; TEMP 97.5; O2SAT 96
--- NOTE | 2025-08-06 23:37 | DISCHARGE SUMMARY ---
Discharge Summary Providers to CC ~ Discharge Summary Admission Diagnosis: ACUTE AND CHRONIC PANCREATITIS Hospital Course DATE OF ADMISSION: 08/03/2025 DATE OF DISCHARGE: 08/06/2025 Discharge Diagnosis\Comment: Acute exacerbation of chronic pancreatitis, atrial fibrillation, hypertension, tobacco use disorder Operations\Procedures: None Consultants: None Complications: None Condition on DC: Stable New Medications: Hydrocodone Bit/Acetaminophen (Hydrocodon-Acetaminophn 10-325 tablet) 10mg- 325mg Tablet 1 TAB PO Q4H PRN for severe pain (7-10), #8 TAB Lipase/Protease/Amylase (Tamara Cedeno 36,000 Units Capsule) 36K-114K Capsule.dr 1 CAP PO Q8H for 30 Days, #90 CAP 2 Refills Continued Medications: Albuterol Sulfate (Ventolin Hfa) 90 Mcg Hfa.aer.ad 1 PUFF INH Q4H PRN for SOB or wheezing Apixaban (Eliquis) 5 Mg Tablet 1 TAB PO Q12H, TAB 0 Refills Atorvastatin Calcium* (Lipitor*) 10 Mg Tablet 1 TAB PO DAILY, TAB Escitalopram Oxalate* (Lexapro*) 5 Mg Tablet 2 TAB PO DAILY, TAB Gabapentin (Gabapentin) 100 Mg Capsule 300 MG PO BID, CAP 0 Refills Lisinopril (Lisinopril) 5 Mg Tablet 1 TAB PO DAILY Pantoprazole Sodium (Pantoprazole Sodium) 40 Mg Tablet.dr 1 TAB PO DAILY Discontinued Medications: Amiodarone HCl (Amiodarone HCl) 200 Mg Tablet 1 TAB PO DAILY Metoprolol Succinate (Metoprolol Succinate) 100 Mg Tab.sr.24h 1 TAB PO DAILY, TAB 0 Refills Discharge Summary: I admitted the patient with the following HPI:This is a 59-year-old male who has had multiple admissions for pancreatitis in the past however he has only had one admission since he became sober from alcohol on July 27, 2024. The patient arrives today with significant abdominal pain in the upper mid abdomen without any radiation denies any fever or chills he states that he was eating beef jerky when this occurred. On arrival to ED the patient is lipase is greater than 375 the patient is moderately to significantly tender in the upper mid abdominal region. The patient is states that this episode is not as significant as prior episodes that led to hospitalization. The patient informs me that his symptoms improved significantly when he was given pancreatic enzymes last hospitalization would like to start these this hospitalization. The patient has no other complaints he does have atrial fibrillation in his heart rate currently is in the 40s to 50s. Patient's metoprolol and amiodarone are held for now. We will continue apixaban the patient has ordered a low-fat diet and IV fluids are being administered along with PRN IV Dilaudid. The patient is metoprolol and a amiodarone held during hospitalization due to bradycardia he continued on his apixaban for DVT and stroke prophylaxis the patient had improvement in his symptoms to the point where he felt he could be discharged on the morning of the . I wrote for a Creon however this pancreatic enzymes were not available and we ar e able to obtain a comparable pancreatic enzymes for the patient with two refills. He is to take the pancreatic enzymes with a each meal. The patient requested a short script of [place] for discharge and the patient received a total of eight tablets of [place] for discharge for severe pain. The patient has hypertension however his blood pressure was controlled during hospitalization without any antihypertensive medications other than lisinopril. Gen. No acute distress alert and oriented 4 Lungs clear to ascultation bilaterally, no wheezes rales or rhonchi appreciated Heart normal sinus rhythm no murmurs rubs or clicks noted Abdomen soft nontender bowel sounds are normoactive Lower extremities no clubbing cyanosis, nor edema appreciated bilaterally The patient felt ready to be discharged and was medically cleared to be discharged on 08/06/2025 The patient was seen and evaluated on day of discharge. Time spent on discharge 35 minutes *Problems/Diagnosis: (1) Pancreatitis Status: Acute Total Time Spent on D/C: > 30 Minutes Date of Service: Aug 06, 2025 Billing Provider: RABIA TREVINO DO Common Visit Codes: 27492-QVI/OBS DISCH DAY >30min Problem Qualifiers (1) Pancreatitis: Qualified Codes: K85.90 - Acute pancreatitis without necrosis or infection, unspecified RABIA TREVINO DO Aug 06, 2025 23:37
== END 2025-08-06 12:56 | disposition home or self-care (01) | DRG 282 ==
LOC: ER 11:57 → ED HOLD 17:11 → EDBEDREQ 21:44 → SUR 3N 22:25
PROVIDERS: ADMIT Family Medicine; ATTEND Family Medicine
DX: K85.90 Acute pancreatitis without necrosis or infection, unspecified (principal); F17.210 Nicotine dependence, cigarettes, uncomplicated; I10 Essential (primary) hypertension; I48.91 Unspecified atrial fibrillation; J44.9 Chronic obstructive pulmonary disease, unspecified; F41.9 Anxiety disorder, unspecified; K86.1 Other chronic pancreatitis; F32.A Depression, unspecified; Z88.0 Allergy status to penicillin; Z83.3 Family history of diabetes mellitus; Z79.01 Long term (current) use of anticoagulants; Z87.11 Personal history of peptic ulcer disease
CPT/HCPCS: 36415; 80053; 81003; 83690; 85025; 87081; 96374; 96375; 99285; G0378; J1171; J1650; J2270; J2405; J2470; J7030